=== PATIENT | female | born 1955 | race Caucasian/White ===

== ENCOUNTER 2017-11-09 11:05 | Inpatient (IN) | payer MEDICARE, MEDICAID ==
[~2017-11-09] VITALS: Ht 167.6 cm; Wt 58.9 kg
[~2017-11-09 11:05] MED LIST: CHOL100034 PO; DIVA125T2 PO; FLUO20CA30 PO; GABA-529 PO; LEVO25TA9 PO; LORA-192 PO; OMEP20CA4 PO; QUET200XR PO; SIMV-260 PO
[2017-11-09 11:26] VITALS: BP 126/71
[2017-11-09] MEDS ORDERED: HALOPERIDOL 5 MG TABLET PO PRN (11:45)
[2017-11-09 13:50] VITALS: BP 111/64
[2017-11-09 14:13] VITALS: BP 111/64
[2017-11-09 16:11] VITALS: BP 110/67
[2017-11-09] MEDS: LORazepam 1 MG TABLET PO PRN (16:26)
[2017-11-10 00:28] VITALS: BP 110/64
[2017-11-10 08:51] VITALS: BP 112/74
[2017-11-10 09:03] LABS: AMPHET/METH SCREEN,URINE NEGATIVE (NEGATIVE); BARBITURATE SCREEN, URINE NEGATIVE (NEGATIVE); BENZODIAZEPINES SCREEN,URINE NEGATIVE (NEGATIVE); CANNABINOID SCREEN,URINE NEGATIVE (NEGATIVE); COCAINE SCREEN,URINE NEGATIVE (NEGATIVE); METHADONE SCREEN, URINE NEGATIVE (NEGATIVE); OPIATE SCREEN,URINE POSITIVE (NEGATIVE); PHENCYCLIDINE SCREEN,URINE NEGATIVE (NEGATIVE)
[2017-11-10] MEDS: LORazepam 1 MG TABLET PO PRN ×2 (09:20→13:29)
[2017-11-10] MEDS ORDERED: PETROLATUM,WHITE 71 GM JELLY TP PRN (09:30)
[2017-11-10] MEDS ORDERED: CloNIDine HCL 0.1 MG TABLET PO PRN (09:30)
[2017-11-10] MEDS ORDERED: IBUPROFEN 600 MG TABLET PO PRN (09:30)
[2017-11-10] MEDS ORDERED: LOPERAMIDE HCL 2 MG CAPSULE PO PRN (09:30)
[2017-11-10] MEDS ORDERED: ACETAMINOPHEN 325 MG TABLET PO PRN (09:30)
[2017-11-10] MEDS ORDERED: MAG HYDROX/AL HYDROX/SIMETH ES 30 ML SUSPENSION UDCUP PO PRN (09:30)
[2017-11-10] MEDS ORDERED: BACITRACIN 28.4 GM OINTMENT TP PRN (09:30)
[2017-11-10] MEDS ORDERED: BENZOCAINE/MENTHOL LOZENGE MM PRN (09:30)
[2017-11-10] MEDS ORDERED: ONDANSETRON HCL 4 MG TABLET PO PRN (09:30)
[2017-11-10] MEDS ORDERED: ALBUTEROL SULFATE HFA 90 MCG/PUFF 8 GM INHALER IH PRN (09:30)
[2017-11-10 09:32] LABS: BILIRUBIN,URINE NEGATIVE (NEGATIVE); GLUCOSE, URINE (UA) NEGATIVE (NEGATIVE); KETONES,URINE NEGATIVE (NEGATIVE); LEUKOCYTE ESTERASE ,URINE NEGATIVE (NEGATIVE); NITRATE,URINE NEGATIVE (NEGATIVE); OCCULT BLOOD,URINE NEGATIVE (NEGATIVE); PROTEIN,URINE NEGATIVE (NEGATIVE); UROBILINOGEN,URINE 0.2 mg/dL (<=1.0)
[2017-11-10 09:48] LABS: APPEARANCE,URINE CLEAR (CLEAR)
[2017-11-10] MEDS: MAGNESIUM HYDROXIDE SUSPENSION 30 ML UDCUP PO PRN (10:23)
[2017-11-10] MEDS: GABAPENTIN 400 MG CAPSULE PO SCH ×3 (10:23→16:50)
[2017-11-10] MEDS: FLUoxetine HCL 10 MG CAPSULE PO SCH (15:48)
[2017-11-10 16:23] VITALS: BP 108/65
[2017-11-10] MEDS: CYCLOBENZAPRINE HCL 10 MG TABLET PO SCH (16:50)
[2017-11-10] MEDS: QUEtiapine FUMARATE 200 MG TABLET PO SCH (20:33)
[2017-11-10] MEDS: SIMVASTATIN 20 MG TABLET PO SCH (20:33)
[2017-11-10] MEDS: DIVALPROEX SODIUM 500 MG DR TABLET PO SCH (20:33)
[2017-11-11] MEDS: LEVOTHYROXINE SODIUM 25 MCG TABLET PO SCH (06:11)
[2017-11-11 06:57] VITALS: BP 113/68
[2017-11-11] MEDS: DIVALPROEX SODIUM 500 MG DR TABLET PO SCH ×2 (08:46→20:11)
[2017-11-11] MEDS: DOCUSATE SODIUM 100 MG CAPSULE PO SCH (08:46)
[2017-11-11 08:47] LABS: BASOPHILS % (AUTO) 0.4 % (0.0-2.0); EOSINOPHILS % (AUTO) 2.8 % (1.0-6.0); HEMATOCRIT 41.3 % (36-46); HEMOGLOBIN 13.9 g/dL (12.0-16.0); LYMPHOCYTES # (AUTO) 3.5 K/uL (1.0-4.8); LYMPHOCYTES % (AUTO) 50.3 % (22.0-44.0); MEAN CORPUSCULAR HEMOGLOBIN 30.2 pg (26.0-34.0); MEAN CORPUSCULAR HGB CONC 33.6 G/dL (31.0-37.0); MEAN CORPUSCULAR VOLUME 90 fL (80-100); MONOCYTES # (AUTO) 0.6 K/uL (0.1-1.0); MONOCYTES % (AUTO) 8.8 % (2.0-9.0); NEUTROPHILS # (AUTO) 2.6 K/uL (1.8-7.7); NEUTROPHILS % (AUTO) 37.7 % (40.0-70.0); PLATELET COUNT (AUTO) 319 K/uL (150-450); RED CELL DISTRIBUTION WIDTH 13.9 % (11.5-14.5)
[2017-11-11] MEDS: FLUoxetine HCL 10 MG CAPSULE PO SCH (08:47)
[2017-11-11] MEDS: CHOLECALCIFEROL (VIT D3) 1,000 UNITS TABLET PO SCH (08:47)
[2017-11-11] MEDS: CYCLOBENZAPRINE HCL 10 MG TABLET PO SCH ×2 (08:47→16:11)
[2017-11-11] MEDS: OMEPRAZOLE 20 MG CAPSULE PO SCH (08:47)
[2017-11-11] MEDS: GABAPENTIN 400 MG CAPSULE PO SCH ×3 (08:47→16:11)
[2017-11-11] MEDS ORDERED: [UNRECOGNIZED DRUG - OTHER] PO SCH (09:00)
[2017-11-11 09:04] VITALS: BP 110/60
[2017-11-11 09:09] LABS: HEMOGLOBIN A1C 5.9 % (4.5-6.2)
[2017-11-11 09:17] LABS: ALANINE AMINOTRANSFERASE 17 U/L (12-78); ALBUMIN 3.4 g/dL (3.4-5.0); ALKALINE PHOSPHATASE 72 U/L (46-116); ANION GAP 4 mmol/L (8-16); ASPARTATE AMINOTRANSFERASE 14 U/L (15-37); BILIRUBIN,TOTAL 0.2 mg/dL (0.1-1.0); CALCIUM, TOTAL 9.4 mg/dL (8.8-10.5); CARBON DIOXIDE 33 mmol/L (22-29); CHLORIDE 103 mmol/L (98-107); CHOL/HDL RATIO 2.6 (3.9-5.7); CHOLESTEROL 185 mg/dL (131-200); CREATININE 0.68 mg/dL (0.60-1.30); FREE T4 (FREE THYROXINE) 0.67 ng/dL (0.76-1.46); GLOMERULAR FILTR. RATE CALC > 60 mL/min (>60); GLUCOSE,RANDOM 86 mg/dL (70-110); HDL CHOLESTEROL 71 mg/dL (40-60); LDL CHOL (CALC.) 98 mg/dL (0-130); POTASSIUM 4.7 mmol/L (3.5-5.1); SODIUM SERUM 140 mmol/L (136-145); THYROID STIMULATING HORMONE 3.77 uIU/mL (0.36-3.74); TOTAL PROTEIN, SERUM 7.2 g/dL (6.4-8.2); TRIGLYCERIDES 81 mg/dL (15-150); UREA NITROGEN, BLOOD 19 mg/dL (7-18); VALPROIC ACID 49 mcg/mL (50-100)
[2017-11-11] MEDS: LORazepam 1 MG TABLET PO PRN ×3 (09:39→21:00)
[2017-11-11] MEDS: NICOTINE 21 MG/24 HOUR PATCH TD SCH (12:36)
[2017-11-11 16:18] VITALS: BP 112/71
[2017-11-11] MEDS: SIMVASTATIN 20 MG TABLET PO SCH (20:11)
[2017-11-11] MEDS: QUEtiapine FUMARATE 200 MG TABLET PO SCH (20:11)
[2017-11-12 06:14] VITALS: BP 107/62
[2017-11-12] MEDS: LEVOTHYROXINE SODIUM 25 MCG TABLET PO SCH (06:42)
[2017-11-12 08:46] VITALS: BP 111/69
[2017-11-12] MEDS: GABAPENTIN 400 MG CAPSULE PO SCH ×3 (09:01→16:05)
[2017-11-12] MEDS: CHOLECALCIFEROL (VIT D3) 1,000 UNITS TABLET PO SCH (09:02)
[2017-11-12] MEDS: DOCUSATE SODIUM 100 MG CAPSULE PO SCH (09:02)
[2017-11-12] MEDS: FLUoxetine HCL 10 MG CAPSULE PO SCH (09:02)
[2017-11-12] MEDS: OMEPRAZOLE 20 MG CAPSULE PO SCH (09:03)
[2017-11-12] MEDS: CYCLOBENZAPRINE HCL 10 MG TABLET PO SCH ×2 (09:03→16:05)
[2017-11-12] MEDS: DIVALPROEX SODIUM 500 MG DR TABLET PO SCH ×2 (09:03→20:12)
[2017-11-12] MEDS: NICOTINE 21 MG/24 HOUR PATCH TD SCH (09:04)
[2017-11-12] MEDS: LORazepam 1 MG TABLET PO PRN ×2 (09:55→16:05)
[2017-11-12 17:28] VITALS: BP 124/74
[2017-11-12] MEDS: QUEtiapine FUMARATE 200 MG TABLET PO SCH (20:12)
[2017-11-12] MEDS: SIMVASTATIN 20 MG TABLET PO SCH (20:12)
[2017-11-12] MEDS: MAGNESIUM SULFATE 454 GM BOX TP SCH (20:13)
[2017-11-13 00:14] VITALS: BP 120/86
[2017-11-13] MEDS: LEVOTHYROXINE SODIUM 25 MCG TABLET PO SCH (05:54)
[2017-11-13 08:31] VITALS: BP 110/62
[2017-11-13] MEDS: GABAPENTIN 400 MG CAPSULE PO SCH ×3 (09:26→16:10)
[2017-11-13] MEDS: OMEPRAZOLE 20 MG CAPSULE PO SCH (09:26)
[2017-11-13] MEDS: CHOLECALCIFEROL (VIT D3) 1,000 UNITS TABLET PO SCH (09:26)
[2017-11-13] MEDS: DOCUSATE SODIUM 100 MG CAPSULE PO SCH (09:26)
[2017-11-13] MEDS: DIVALPROEX SODIUM 500 MG DR TABLET PO SCH ×2 (09:26→20:36)
[2017-11-13] MEDS: FLUoxetine HCL 10 MG CAPSULE PO SCH (09:26)
[2017-11-13] MEDS: CYCLOBENZAPRINE HCL 10 MG TABLET PO SCH ×2 (09:26→16:10)
[2017-11-13] MEDS: NICOTINE 21 MG/24 HOUR PATCH TD SCH (09:27)
[2017-11-13] MEDS: LORazepam 1 MG TABLET PO PRN ×2 (09:50→16:10)
[2017-11-13 16:17] VITALS: BP 109/74
[2017-11-13] MEDS: QUEtiapine FUMARATE 200 MG TABLET PO SCH (20:36)
[2017-11-13] MEDS: SIMVASTATIN 20 MG TABLET PO SCH (20:36)
[2017-11-13] MEDS: MAGNESIUM SULFATE 454 GM BOX TP SCH (20:41)
[2017-11-14 00:05] VITALS: BP 100/61
[2017-11-14] MEDS: LORazepam 1 MG TABLET PO PRN ×3 (03:30→14:55)
[2017-11-14] MEDS: LEVOTHYROXINE SODIUM 25 MCG TABLET PO SCH (06:07)
[2017-11-14 08:49] VITALS: BP 106/70
[2017-11-14] MEDS ORDERED: NYSTATIN 30 GM CREAM TP SCH (09:00)
[2017-11-14] MEDS: GABAPENTIN 400 MG CAPSULE PO SCH ×3 (09:48→17:15)
[2017-11-14] MEDS: OMEPRAZOLE 20 MG CAPSULE PO SCH (09:48)
[2017-11-14] MEDS: CHOLECALCIFEROL (VIT D3) 1,000 UNITS TABLET PO SCH (09:48)
[2017-11-14] MEDS: NICOTINE 21 MG/24 HOUR PATCH TD SCH (09:48)
[2017-11-14] MEDS: DIVALPROEX SODIUM 500 MG DR TABLET PO SCH ×2 (09:49→21:19)
[2017-11-14] MEDS: DOCUSATE SODIUM 100 MG CAPSULE PO SCH (09:49)
[2017-11-14] MEDS: FLUoxetine HCL 10 MG CAPSULE PO SCH (09:49)
[2017-11-14] MEDS: NYSTATIN 30 GM CREAM TP SCH ×2 (09:52→17:16)
[2017-11-14] MEDS: CYCLOBENZAPRINE HCL 10 MG TABLET PO SCH ×2 (10:02→17:15)
[2017-11-14 16:34] VITALS: BP 106/63
[2017-11-14] MEDS: QUEtiapine FUMARATE 200 MG TABLET PO SCH (21:19)
[2017-11-14] MEDS: SIMVASTATIN 20 MG TABLET PO SCH (21:20)
[2017-11-14] MEDS: MAGNESIUM SULFATE 454 GM BOX TP SCH (21:20)
[2017-11-15 00:19] VITALS: BP 110/62
[2017-11-15] MEDS: LEVOTHYROXINE SODIUM 25 MCG TABLET PO SCH (06:15)
[2017-11-15] MEDS: LORazepam 1 MG TABLET PO PRN ×3 (06:34→15:40)
[2017-11-15] MEDS: DOCUSATE SODIUM 100 MG CAPSULE PO SCH (08:05)
[2017-11-15] MEDS: OMEPRAZOLE 20 MG CAPSULE PO SCH (08:05)
[2017-11-15] MEDS: CYCLOBENZAPRINE HCL 10 MG TABLET PO SCH ×2 (08:05→16:07)
[2017-11-15] MEDS: GABAPENTIN 400 MG CAPSULE PO SCH ×3 (08:05→16:07)
[2017-11-15] MEDS: FLUoxetine HCL 10 MG CAPSULE PO SCH (08:05)
[2017-11-15] MEDS: DIVALPROEX SODIUM 500 MG DR TABLET PO SCH ×2 (08:05→20:28)
[2017-11-15] MEDS: NICOTINE 21 MG/24 HOUR PATCH TD SCH (08:08)
[2017-11-15] MEDS: CHOLECALCIFEROL (VIT D3) 1,000 UNITS TABLET PO SCH (08:08)
[2017-11-15] MEDS: NYSTATIN 30 GM CREAM TP SCH ×2 (08:10→16:07)
[2017-11-15 08:50] VITALS: BP 113/70
[2017-11-15 16:19] VITALS: BP 110/71
[2017-11-15] MEDS: MAGNESIUM HYDROXIDE SUSPENSION 30 ML UDCUP PO PRN (17:45)
[2017-11-15] MEDS: QUEtiapine FUMARATE 200 MG TABLET PO SCH (20:28)
[2017-11-15] MEDS: MAGNESIUM SULFATE 454 GM BOX TP SCH (20:28)
[2017-11-15] MEDS: SIMVASTATIN 20 MG TABLET PO SCH (20:28)
[2017-11-15] MEDS: ZOLPIDEM TARTRATE 10 MG TABLET PO PRN (21:55)
[2017-11-16 01:13] VITALS: BP 102/65
[2017-11-16] MEDS: LEVOTHYROXINE SODIUM 25 MCG TABLET PO SCH (06:28)
[2017-11-16 08:00] VITALS: BP 108/72
[2017-11-16] MEDS: OMEPRAZOLE 20 MG CAPSULE PO SCH (08:08)
[2017-11-16] MEDS: DIVALPROEX SODIUM 500 MG DR TABLET PO SCH ×2 (08:08→20:08)
[2017-11-16] MEDS: DOCUSATE SODIUM 100 MG CAPSULE PO SCH (08:08)
[2017-11-16] MEDS: CYCLOBENZAPRINE HCL 10 MG TABLET PO SCH ×2 (08:09→16:44)
[2017-11-16] MEDS: CHOLECALCIFEROL (VIT D3) 1,000 UNITS TABLET PO SCH (08:09)
[2017-11-16] MEDS: GABAPENTIN 400 MG CAPSULE PO SCH ×3 (08:09→16:43)
[2017-11-16] MEDS: FLUoxetine HCL 10 MG CAPSULE PO SCH (08:09)
[2017-11-16] MEDS: NICOTINE 21 MG/24 HOUR PATCH TD SCH (08:09)
[2017-11-16] MEDS: NYSTATIN 30 GM CREAM TP SCH ×2 (08:09→16:44)
[2017-11-16] MEDS: LORazepam 1 MG TABLET PO PRN ×3 (08:23→17:18)
[2017-11-16 16:33] VITALS: BP 103/63
[2017-11-16 19:09] VITALS: BP 110/65
[2017-11-16] MEDS: QUEtiapine FUMARATE 200 MG TABLET PO SCH (20:08)
[2017-11-16] MEDS: SIMVASTATIN 20 MG TABLET PO SCH (20:08)
[2017-11-16] MEDS: MAGNESIUM SULFATE 454 GM BOX TP SCH (20:08)
[2017-11-17 02:42] VITALS: BP 101/62
[2017-11-17] MEDS: SUMAtriptan SUCCINATE 25 MG TABLET PO PRN ×2 (05:41→19:48)
[2017-11-17] MEDS: LEVOTHYROXINE SODIUM 25 MCG TABLET PO SCH (06:30)
[2017-11-17] MEDS: DOCUSATE SODIUM 100 MG CAPSULE PO SCH (08:05)
[2017-11-17] MEDS: OMEPRAZOLE 20 MG CAPSULE PO SCH (08:06)
[2017-11-17] MEDS: DIVALPROEX SODIUM 500 MG DR TABLET PO SCH ×2 (08:06→20:01)
[2017-11-17] MEDS: GABAPENTIN 400 MG CAPSULE PO SCH ×3 (08:06→16:24)
[2017-11-17] MEDS: CYCLOBENZAPRINE HCL 10 MG TABLET PO SCH ×2 (08:06→16:24)
[2017-11-17] MEDS: FLUoxetine HCL 10 MG CAPSULE PO SCH (08:06)
[2017-11-17] MEDS: CHOLECALCIFEROL (VIT D3) 1,000 UNITS TABLET PO SCH (08:06)
[2017-11-17] MEDS: LORazepam 1 MG TABLET PO PRN ×4 (08:07→20:04)
[2017-11-17] MEDS: MAGNESIUM HYDROXIDE SUSPENSION 30 ML UDCUP PO PRN ×2 (08:07→17:05)
[2017-11-17] MEDS: NYSTATIN 30 GM CREAM TP SCH ×2 (08:07→16:26)
[2017-11-17] MEDS: NICOTINE 21 MG/24 HOUR PATCH TD SCH (08:07)
[2017-11-17 08:22] VITALS: BP 109/66
[2017-11-17] MEDS ORDERED: QUET50TA PO (14:15)
[2017-11-17] MEDS ORDERED: DSSL PO (14:16)
[2017-11-17] MEDS ORDERED: CYCL10B PO (14:18)
[2017-11-17 16:10] VITALS: BP 107/65
[2017-11-17 19:50] VITALS: BP 112/68
[2017-11-17] MEDS: QUEtiapine FUMARATE 200 MG TABLET PO SCH (20:01)
[2017-11-17] MEDS: SIMVASTATIN 20 MG TABLET PO SCH (20:01)
[2017-11-17] MEDS ORDERED: MAGNESIUM CITRATE 300 ML ORAL SOLUTION PO ONE (20:15)
[2017-11-17] MEDS: MAGNESIUM SULFATE 454 GM BOX TP SCH (20:40)
[2017-11-17] MEDS: ZOLPIDEM TARTRATE 10 MG TABLET PO PRN (21:22)
[2017-11-18 01:30] VITALS: BP 102/61
[2017-11-18] MEDS ORDERED: DIVA500T35 PO (05:53)
[2017-11-18] MEDS ORDERED: PROZ10 PO (05:53)
[2017-11-18] MEDS ORDERED: QUET200T29 PO (05:53)
[2017-11-18] MEDS: LEVOTHYROXINE SODIUM 25 MCG TABLET PO SCH (06:29)
[2017-11-18] MEDS ORDERED: ALBU8HFA IH (07:58)
[2017-11-18] MEDS: OMEPRAZOLE 20 MG CAPSULE PO SCH (08:30)
[2017-11-18] MEDS: CHOLECALCIFEROL (VIT D3) 1,000 UNITS TABLET PO SCH (08:30)
[2017-11-18 08:31] VITALS: BP 108/69
[2017-11-18] MEDS: DIVALPROEX SODIUM 500 MG DR TABLET PO SCH (08:31)
[2017-11-18] MEDS: DOCUSATE SODIUM 100 MG CAPSULE PO SCH (08:31)
[2017-11-18] MEDS: CYCLOBENZAPRINE HCL 10 MG TABLET PO SCH (08:31)
[2017-11-18] MEDS: GABAPENTIN 400 MG CAPSULE PO SCH (08:31)
[2017-11-18] MEDS: FLUoxetine HCL 10 MG CAPSULE PO SCH (08:31)
[2017-11-18] MEDS: NYSTATIN 30 GM CREAM TP SCH (08:32)
[2017-11-18] MEDS: NICOTINE 21 MG/24 HOUR PATCH TD SCH (08:32)
== END 2017-11-18 09:40 | disposition home or self-care (01) | DRG 885 ==
LOC: B2X 13:30
DX: F31.5 Bipolar disorder, current episode depressed, severe, with psychotic features (principal); M41.9 Scoliosis, unspecified; R45.851 Suicidal ideations; B18.2 Chronic viral hepatitis C; E03.9 Hypothyroidism, unspecified; E78.5 Hyperlipidemia, unspecified; F17.200 Nicotine dependence, unspecified, uncomplicated; F90.9 Attention-deficit hyperactivity disorder, unspecified type; G43.909 Migraine, unspecified, not intractable, without status migrainosus; G89.4 Chronic pain syndrome; I10 Essential (primary) hypertension; J44.9 Chronic obstructive pulmonary disease, unspecified; K21.9 Gastro-esophageal reflux disease without esophagitis; M19.90 Unspecified osteoarthritis, unspecified site; M81.0 Age-related osteoporosis without current pathological fracture; F15.10 Other stimulant abuse, uncomplicated; F41.9 Anxiety disorder, unspecified; Z62.810 Personal history of physical and sexual abuse in childhood; Z71.6 Tobacco abuse counseling; Z87.11 Personal history of peptic ulcer disease; Z90.710 Acquired absence of both cervix and uterus; Z80.3 Family history of malignant neoplasm of breast; Z80.41 Family history of malignant neoplasm of ovary
CPT/HCPCS: 83036; 84439; 84443

== ENCOUNTER 2017-12-05 18:45 | Inpatient (IN) | payer MEDICARE, MEDICAID ==
[~2017-12-05] VITALS: Ht 167.6 cm; Wt 61.6 kg
[~2017-12-05 18:45] MED LIST changes: +ALBU8HFA IH; -DIVA125T2 PO; +DIVA500T35 PO; +DSSL PO; -FLUO20CA30 PO; -LORA-192 PO; +PROZ10 PO; +QUET200T29 PO; -QUET200XR PO
[2017-12-05 20:29] VITALS: BP 109/63
[2017-12-05] MEDS ORDERED: QUEtiapine FUMARATE 100 MG TABLET PO PRN (20:45)
[2017-12-05 21:32] VITALS: BP_SYST 109; BP_SYST 112; BP_DIAS 66
[2017-12-05] MEDS ORDERED: PNEUMOCOCCAL VACCINE POLYVALENT 0.5 ML VIAL [PPSV23] IM ONE (21:45)
[2017-12-05] MEDS ORDERED: ACETAMINOPHEN 325 MG TABLET PO PRN (21:45)
[2017-12-05] MEDS ORDERED: IBUPROFEN 400 MG TABLET PO PRN (21:45)
[2017-12-05] MEDS: QUEtiapine FUMARATE 200 MG TABLET PO SCH (21:52)
[2017-12-05] MEDS: DIVALPROEX SODIUM 500 MG DR TABLET PO SCH (21:52)
[2017-12-06 01:17] VITALS: BP 110/60
[2017-12-06 08:32] LABS: BASOPHILS % (AUTO) 0.7 % (0.0-2.0); EOSINOPHILS % (AUTO) 3.3 % (1.0-6.0); HEMATOCRIT 38.8 % (36-46); HEMOGLOBIN 13.1 g/dL (12.0-16.0); LYMPHOCYTES # (AUTO) 3.7 K/uL (1.0-4.8); LYMPHOCYTES % (AUTO) 48.3 % (22.0-44.0); MEAN CORPUSCULAR HEMOGLOBIN 30.6 pg (26.0-34.0); MEAN CORPUSCULAR HGB CONC 33.9 G/dL (31.0-37.0); MEAN CORPUSCULAR VOLUME 90 fL (80-100); MONOCYTES # (AUTO) 0.6 K/uL (0.1-1.0); MONOCYTES % (AUTO) 8.3 % (2.0-9.0); NEUTROPHILS % (AUTO) 39.4 % (40.0-70.0); PLATELET COUNT (AUTO) 303 K/uL (150-450); RED CELL DISTRIBUTION WIDTH 14.3 % (11.5-14.5)
[2017-12-06] MEDS: NICOTINE 21 MG/24 HOUR PATCH TD SCH (08:47)
[2017-12-06] MEDS: FLUoxetine HCL 10 MG CAPSULE PO SCH (08:47)
[2017-12-06] MEDS: GABAPENTIN 400 MG CAPSULE PO SCH ×3 (08:47→16:45)
[2017-12-06] MEDS: DIVALPROEX SODIUM 500 MG DR TABLET PO SCH ×2 (08:47→20:48)
[2017-12-06] MEDS: BACITRACIN 28.4 GM OINTMENT TP SCH ×2 (08:48→16:45)
[2017-12-06 08:54] VITALS: BP 109/69
[2017-12-06 10:18] LABS: POTASSIUM 3.4 mmol/L (3.5-5.1); SODIUM SERUM 141 mmol/L (136-145)
[2017-12-06 10:19] LABS: ALANINE AMINOTRANSFERASE 28 U/L (12-78); ALBUMIN 3.1 g/dL (3.4-5.0); ALKALINE PHOSPHATASE 74 U/L (46-116); ANION GAP 4 mmol/L (8-16); ASPARTATE AMINOTRANSFERASE 17 U/L (15-37); BILIRUBIN,TOTAL 0.2 mg/dL (0.1-1.0); CALCIUM, TOTAL 8.6 mg/dL (8.8-10.5); CARBON DIOXIDE 34 mmol/L (22-29); CHLORIDE 103 mmol/L (98-107); CREATININE 0.75 mg/dL (0.60-1.30); FREE T4 (FREE THYROXINE) 1.03 ng/dL (0.76-1.46); GLOMERULAR FILTR. RATE CALC > 60 mL/min (>60); GLUCOSE,RANDOM 98 mg/dL (70-110); TOTAL PROTEIN, SERUM 6.8 g/dL (6.4-8.2); VALPROIC ACID 66 mcg/mL (50-100)
[2017-12-06 10:41] LABS: UREA NITROGEN, BLOOD 17 mg/dL (7-18)
[2017-12-06] MEDS ORDERED: GABA-533 PO (13:06)
[2017-12-06] MEDS ORDERED: DSS100 PO (13:06)
[2017-12-06] MEDS ORDERED: POTASSIUM CHLORIDE 20 MEQ ER TABLET PO ONE (13:15)
[2017-12-06 16:20] VITALS: BP 114/74
[2017-12-06] MEDS: ALBUTEROL SULFATE HFA 90 MCG/PUFF 8 GM INHALER IH PRN (20:04)
[2017-12-06] MEDS: ACETAMINOPHEN 325 MG TABLET PO PRN (20:05)
[2017-12-06] MEDS: QUEtiapine FUMARATE 200 MG TABLET PO SCH (20:48)
[2017-12-06] MEDS ORDERED: DIVALPROEX SODIUM 500 MG DR TABLET PO SCH (21:00)
[2017-12-07 06:31] VITALS: BP 121/65
[2017-12-07] MEDS: LEVOTHYROXINE SODIUM 100 MCG TABLET PO SCH (06:42)
[2017-12-07 08:00] VITALS: BP 109/65
[2017-12-07] MEDS: DIVALPROEX SODIUM 500 MG DR TABLET PO SCH ×2 (08:19→20:44)
[2017-12-07] MEDS: CHOLECALCIFEROL (VIT D3) 1,000 UNITS TABLET PO SCH (08:19)
[2017-12-07] MEDS: SIMVASTATIN 20 MG TABLET PO SCH (08:19)
[2017-12-07] MEDS: DOCUSATE SODIUM 100 MG CAPSULE PO SCH (08:19)
[2017-12-07] MEDS: GABAPENTIN 400 MG CAPSULE PO SCH ×3 (08:19→16:35)
[2017-12-07] MEDS: OMEPRAZOLE 20 MG CAPSULE PO SCH (08:19)
[2017-12-07] MEDS: FLUoxetine HCL 10 MG CAPSULE PO SCH (08:19)
[2017-12-07] MEDS: BACITRACIN 28.4 GM OINTMENT TP SCH ×2 (08:20→16:35)
[2017-12-07] MEDS: NICOTINE 21 MG/24 HOUR PATCH TD SCH (08:20)
[2017-12-07 08:35] LABS: ANION GAP 7 mmol/L (8-16); CALCIUM, TOTAL 8.7 mg/dL (8.8-10.5); CARBON DIOXIDE 27 mmol/L (22-29); CHLORIDE 106 mmol/L (98-107); CREATININE 0.63 mg/dL (0.60-1.30); GLOMERULAR FILTR. RATE CALC > 60 mL/min (>60); GLUCOSE,RANDOM 78 mg/dL (70-110); POTASSIUM 4.8 mmol/L (3.5-5.1); SODIUM SERUM 140 mmol/L (136-145); UREA NITROGEN, BLOOD 21 mg/dL (7-18)
[2017-12-07] MEDS: ALBUTEROL SULFATE HFA 90 MCG/PUFF 8 GM INHALER IH PRN (12:55)
[2017-12-07 14:10] VITALS: BP 112/68
[2017-12-07] MEDS: ACETAMINOPHEN 325 MG TABLET PO PRN (14:10)
[2017-12-07 16:15] VITALS: BP 114/80
[2017-12-07] MEDS: QUEtiapine FUMARATE 200 MG TABLET PO SCH (20:44)
[2017-12-08] MEDS: LEVOTHYROXINE SODIUM 100 MCG TABLET PO SCH (06:16)
[2017-12-08 06:31] VITALS: BP 110/60
[2017-12-08] MEDS: CHOLECALCIFEROL (VIT D3) 1,000 UNITS TABLET PO SCH (08:36)
[2017-12-08] MEDS: DOCUSATE SODIUM 100 MG CAPSULE PO SCH (08:36)
[2017-12-08] MEDS: OMEPRAZOLE 20 MG CAPSULE PO SCH (08:36)
[2017-12-08] MEDS: SIMVASTATIN 20 MG TABLET PO SCH (08:36)
[2017-12-08] MEDS: FLUoxetine HCL 10 MG CAPSULE PO SCH (08:36)
[2017-12-08] MEDS: DIVALPROEX SODIUM 500 MG DR TABLET PO SCH ×2 (08:37→20:40)
[2017-12-08] MEDS: NICOTINE 21 MG/24 HOUR PATCH TD SCH (08:37)
[2017-12-08] MEDS: GABAPENTIN 400 MG CAPSULE PO SCH ×3 (08:37→16:48)
[2017-12-08] MEDS: BACITRACIN 28.4 GM OINTMENT TP SCH ×2 (08:39→16:48)
[2017-12-08] MEDS: HydrOXYzine PAMOATE 25 MG CAPSULE PO PRN (10:08)
[2017-12-08 10:09] VITALS: BP 123/74
[2017-12-08] MEDS: IBUPROFEN 400 MG TABLET PO PRN (10:09)
[2017-12-08 10:48] VITALS: BP 123/74
[2017-12-08 16:22] VITALS: BP 110/62
[2017-12-08] MEDS: QUEtiapine FUMARATE 200 MG TABLET PO SCH (20:40)
[2017-12-09] MEDS ORDERED: LEVOTHYROXINE SODIUM 25 MCG TABLET PO SCH (06:30)
[2017-12-09] MEDS: LEVOTHYROXINE SODIUM 100 MCG TABLET PO SCH (06:35)
[2017-12-09 07:11] VITALS: BP 115/73
[2017-12-09] MEDS ORDERED: GABAPENTIN 400 MG CAPSULE PO SCH (09:00)
[2017-12-09] MEDS: DIVALPROEX SODIUM 500 MG DR TABLET PO SCH ×2 (09:07→20:48)
[2017-12-09] MEDS: SIMVASTATIN 20 MG TABLET PO SCH (09:07)
[2017-12-09] MEDS: GABAPENTIN 400 MG CAPSULE PO SCH ×3 (09:07→16:15)
[2017-12-09] MEDS: CHOLECALCIFEROL (VIT D3) 1,000 UNITS TABLET PO SCH (09:07)
[2017-12-09] MEDS: OMEPRAZOLE 20 MG CAPSULE PO SCH (09:07)
[2017-12-09] MEDS: DOCUSATE SODIUM 100 MG CAPSULE PO SCH (09:07)
[2017-12-09] MEDS: FLUoxetine HCL 10 MG CAPSULE PO SCH (09:07)
[2017-12-09 09:10] VITALS: BP 109/62
[2017-12-09] MEDS: BACITRACIN 28.4 GM OINTMENT TP SCH ×2 (09:10→16:15)
[2017-12-09] MEDS: IBUPROFEN 400 MG TABLET PO PRN (09:10)
[2017-12-09] MEDS: NICOTINE 21 MG/24 HOUR PATCH TD SCH (09:10)
[2017-12-09 16:15] VITALS: BP 111/67
[2017-12-09] MEDS: TraMADol HCL 50 MG TABLET PO PRN (16:15)
[2017-12-09] MEDS ORDERED: MAGNESIUM CITRATE 300 ML ORAL SOLUTION PO ONE (17:45)
[2017-12-09] MEDS: QUEtiapine FUMARATE 200 MG TABLET PO SCH (20:48)
[2017-12-10] MEDS: LEVOTHYROXINE SODIUM 100 MCG TABLET PO SCH (06:40)
[2017-12-10 07:34] VITALS: BP 103/67
[2017-12-10 08:44] VITALS: BP 105/62
[2017-12-10] MEDS: CHOLECALCIFEROL (VIT D3) 1,000 UNITS TABLET PO SCH (09:29)
[2017-12-10] MEDS: FLUoxetine HCL 10 MG CAPSULE PO SCH (09:29)
[2017-12-10] MEDS: OMEPRAZOLE 20 MG CAPSULE PO SCH (09:29)
[2017-12-10] MEDS: GABAPENTIN 400 MG CAPSULE PO SCH ×3 (09:29→16:37)
[2017-12-10] MEDS: DOCUSATE SODIUM 100 MG CAPSULE PO SCH (09:29)
[2017-12-10] MEDS: DIVALPROEX SODIUM 500 MG DR TABLET PO SCH ×2 (09:29→20:32)
[2017-12-10] MEDS: SIMVASTATIN 20 MG TABLET PO SCH (09:29)
[2017-12-10] MEDS: NICOTINE 21 MG/24 HOUR PATCH TD SCH (09:29)
[2017-12-10] MEDS: BACITRACIN 28.4 GM OINTMENT TP SCH ×2 (09:31→16:51)
[2017-12-10 16:48] VITALS: BP 116/69
[2017-12-10] MEDS: TraMADol HCL 50 MG TABLET PO PRN (16:56)
[2017-12-10] MEDS: QUEtiapine FUMARATE 200 MG TABLET PO SCH (20:32)
[2017-12-10 21:01] VITALS: BP 124/68
[2017-12-10] MEDS: ZOLPIDEM TARTRATE 10 MG TABLET PO PRN (21:24)
[2017-12-11 06:16] VITALS: BP 101/67
[2017-12-11] MEDS: LEVOTHYROXINE SODIUM 100 MCG TABLET PO SCH (06:55)
[2017-12-11 08:31] VITALS: BP 100/60
[2017-12-11] MEDS: FLUoxetine HCL 10 MG CAPSULE PO SCH (09:17)
[2017-12-11] MEDS: DOCUSATE SODIUM 100 MG CAPSULE PO SCH (09:17)
[2017-12-11] MEDS: NICOTINE 21 MG/24 HOUR PATCH TD SCH (09:18)
[2017-12-11] MEDS: SIMVASTATIN 20 MG TABLET PO SCH (09:18)
[2017-12-11] MEDS: OMEPRAZOLE 20 MG CAPSULE PO SCH (09:18)
[2017-12-11] MEDS: CHOLECALCIFEROL (VIT D3) 1,000 UNITS TABLET PO SCH (09:18)
[2017-12-11] MEDS: GABAPENTIN 400 MG CAPSULE PO SCH ×3 (09:18→16:38)
[2017-12-11] MEDS: DIVALPROEX SODIUM 500 MG DR TABLET PO SCH ×2 (09:18→20:42)
[2017-12-11] MEDS: BACITRACIN 28.4 GM OINTMENT TP SCH ×2 (09:20→16:38)
[2017-12-11] MEDS: POLYETHYLENE GLYCOL 3350 17 GM PACKET PO SCH (09:20)
[2017-12-11 16:09] VITALS: BP 100/62
[2017-12-11 18:19] VITALS: BP 113/74
[2017-12-11] MEDS: TraMADol HCL 50 MG TABLET PO PRN (18:21)
[2017-12-11] MEDS: QUEtiapine FUMARATE 200 MG TABLET PO SCH (20:42)
[2017-12-12 06:22] VITALS: BP 101/61
[2017-12-12] MEDS: LEVOTHYROXINE SODIUM 100 MCG TABLET PO SCH (07:11)
[2017-12-12 08:36] VITALS: BP 105/60
[2017-12-12] MEDS: FLUoxetine HCL 10 MG CAPSULE PO SCH (08:54)
[2017-12-12] MEDS: GABAPENTIN 400 MG CAPSULE PO SCH ×3 (08:54→16:30)
[2017-12-12] MEDS: CHOLECALCIFEROL (VIT D3) 1,000 UNITS TABLET PO SCH (08:54)
[2017-12-12] MEDS: OMEPRAZOLE 20 MG CAPSULE PO SCH (08:54)
[2017-12-12] MEDS: DOCUSATE SODIUM 100 MG CAPSULE PO SCH (08:54)
[2017-12-12] MEDS: DIVALPROEX SODIUM 500 MG DR TABLET PO SCH ×2 (08:54→20:57)
[2017-12-12] MEDS: POLYETHYLENE GLYCOL 3350 17 GM PACKET PO SCH (08:55)
[2017-12-12] MEDS: SIMVASTATIN 20 MG TABLET PO SCH (08:55)
[2017-12-12] MEDS: NICOTINE 21 MG/24 HOUR PATCH TD SCH (08:55)
[2017-12-12] MEDS: BACITRACIN 28.4 GM OINTMENT TP SCH ×2 (08:58→16:30)
[2017-12-12 11:07] VITALS: BP 117/68
[2017-12-12] MEDS: TraMADol HCL 50 MG TABLET PO PRN (11:07)
[2017-12-12] MEDS: HydrOXYzine PAMOATE 25 MG CAPSULE PO PRN (12:32)
[2017-12-12] MEDS: MAGNESIUM CITRATE 300 ML ORAL SOLUTION PO PRN (14:00)
[2017-12-12 16:08] VITALS: BP 111/68
[2017-12-12] MEDS: QUEtiapine FUMARATE 200 MG TABLET PO SCH (20:57)
[2017-12-12] MEDS: ZOLPIDEM TARTRATE 10 MG TABLET PO PRN (21:55)
[2017-12-13] MEDS: LEVOTHYROXINE SODIUM 100 MCG TABLET PO SCH (06:09)
[2017-12-13 06:48] VITALS: BP 112/70
[2017-12-13 08:35] VITALS: BP 100/63
[2017-12-13] MEDS: GABAPENTIN 400 MG CAPSULE PO SCH ×3 (10:14→17:04)
[2017-12-13] MEDS: SIMVASTATIN 20 MG TABLET PO SCH (10:14)
[2017-12-13] MEDS: CHOLECALCIFEROL (VIT D3) 1,000 UNITS TABLET PO SCH (10:14)
[2017-12-13] MEDS: FLUoxetine HCL 10 MG CAPSULE PO SCH (10:15)
[2017-12-13] MEDS: BACITRACIN 28.4 GM OINTMENT TP SCH ×2 (10:15→17:04)
[2017-12-13] MEDS: DIVALPROEX SODIUM 500 MG DR TABLET PO SCH ×2 (10:15→20:53)
[2017-12-13] MEDS: DOCUSATE SODIUM 100 MG CAPSULE PO SCH (10:15)
[2017-12-13] MEDS: POLYETHYLENE GLYCOL 3350 17 GM PACKET PO SCH (10:15)
[2017-12-13] MEDS: OMEPRAZOLE 20 MG CAPSULE PO SCH (10:15)
[2017-12-13] MEDS: NICOTINE 21 MG/24 HOUR PATCH TD SCH (10:16)
[2017-12-13 13:02] VITALS: BP 120/72
[2017-12-13] MEDS: TraMADol HCL 50 MG TABLET PO PRN (13:03)
[2017-12-13 16:09] VITALS: BP 118/72
[2017-12-13] MEDS: HydrOXYzine PAMOATE 25 MG CAPSULE PO PRN (17:50)
[2017-12-13] MEDS: QUEtiapine FUMARATE 300 MG TABLET PO SCH (20:53)
[2017-12-14] MEDS: LEVOTHYROXINE SODIUM 100 MCG TABLET PO SCH (06:25)
[2017-12-14 06:50] VITALS: BP 110/72
[2017-12-14] MEDS: GABAPENTIN 400 MG CAPSULE PO SCH ×3 (08:14→16:33)
[2017-12-14] MEDS: QUEtiapine FUMARATE 100 MG TABLET PO SCH (08:14)
[2017-12-14] MEDS: DOCUSATE SODIUM 100 MG CAPSULE PO SCH (08:14)
[2017-12-14] MEDS: DIVALPROEX SODIUM 500 MG DR TABLET PO SCH ×2 (08:14→20:16)
[2017-12-14] MEDS: SIMVASTATIN 20 MG TABLET PO SCH (08:14)
[2017-12-14] MEDS: CHOLECALCIFEROL (VIT D3) 1,000 UNITS TABLET PO SCH (08:14)
[2017-12-14] MEDS: OMEPRAZOLE 20 MG CAPSULE PO SCH (08:14)
[2017-12-14] MEDS: NICOTINE 21 MG/24 HOUR PATCH TD SCH (08:15)
[2017-12-14] MEDS: POLYETHYLENE GLYCOL 3350 17 GM PACKET PO SCH (08:15)
[2017-12-14] MEDS: FLUoxetine HCL 20 MG CAPSULE PO SCH (08:15)
[2017-12-14] MEDS: BACITRACIN 28.4 GM OINTMENT TP SCH ×2 (08:15→16:33)
[2017-12-14 08:28] VITALS: BP 102/69
[2017-12-14 12:58] VITALS: BP 117/73
[2017-12-14] MEDS: TraMADol HCL 50 MG TABLET PO PRN ×2 (12:58→20:16)
[2017-12-14] MEDS: HydrOXYzine PAMOATE 25 MG CAPSULE PO PRN (14:38)
[2017-12-14 16:03] VITALS: BP 102/70
[2017-12-14 20:16] VITALS: BP 128/70
[2017-12-14] MEDS: QUEtiapine FUMARATE 300 MG TABLET PO SCH (20:16)
[2017-12-15 01:15] VITALS: BP 103/62
[2017-12-15] MEDS: LEVOTHYROXINE SODIUM 100 MCG TABLET PO SCH (06:26)
[2017-12-15] MEDS: DIVALPROEX SODIUM 500 MG DR TABLET PO SCH ×2 (08:08→20:51)
[2017-12-15] MEDS: SIMVASTATIN 20 MG TABLET PO SCH (08:08)
[2017-12-15] MEDS: CHOLECALCIFEROL (VIT D3) 1,000 UNITS TABLET PO SCH (08:08)
[2017-12-15] MEDS: POLYETHYLENE GLYCOL 3350 17 GM PACKET PO SCH (08:09)
[2017-12-15] MEDS: NICOTINE 21 MG/24 HOUR PATCH TD SCH (08:09)
[2017-12-15] MEDS: BACITRACIN 28.4 GM OINTMENT TP SCH ×2 (08:09→17:17)
[2017-12-15] MEDS: OMEPRAZOLE 20 MG CAPSULE PO SCH (08:09)
[2017-12-15] MEDS: FLUoxetine HCL 20 MG CAPSULE PO SCH (08:09)
[2017-12-15] MEDS: DOCUSATE SODIUM 100 MG CAPSULE PO SCH (08:09)
[2017-12-15] MEDS: QUEtiapine FUMARATE 100 MG TABLET PO SCH (08:09)
[2017-12-15] MEDS: GABAPENTIN 400 MG CAPSULE PO SCH ×3 (08:09→16:38)
[2017-12-15 08:30] VITALS: BP 98/58
[2017-12-15] MEDS: MAGNESIUM CITRATE 300 ML ORAL SOLUTION PO PRN (13:09)
[2017-12-15 16:45] VITALS: BP 110/69
[2017-12-15] MEDS: HydrOXYzine PAMOATE 25 MG CAPSULE PO PRN (16:48)
[2017-12-15] MEDS: QUEtiapine FUMARATE 300 MG TABLET PO SCH (20:51)
[2017-12-16 02:32] VITALS: BP 102/61
[2017-12-16] MEDS: LEVOTHYROXINE SODIUM 100 MCG TABLET PO SCH (06:08)
[2017-12-16 08:42] VITALS: BP 102/70
[2017-12-16] MEDS: DIVALPROEX SODIUM 500 MG DR TABLET PO SCH ×2 (08:46→20:37)
[2017-12-16] MEDS: QUEtiapine FUMARATE 100 MG TABLET PO SCH (08:46)
[2017-12-16] MEDS: FLUoxetine HCL 20 MG CAPSULE PO SCH (08:46)
[2017-12-16] MEDS: DOCUSATE SODIUM 100 MG CAPSULE PO SCH (08:46)
[2017-12-16] MEDS: OMEPRAZOLE 20 MG CAPSULE PO SCH (08:46)
[2017-12-16] MEDS: CHOLECALCIFEROL (VIT D3) 1,000 UNITS TABLET PO SCH (08:47)
[2017-12-16] MEDS: GABAPENTIN 400 MG CAPSULE PO SCH ×3 (08:47→16:39)
[2017-12-16] MEDS: SIMVASTATIN 20 MG TABLET PO SCH (08:47)
[2017-12-16] MEDS: POLYETHYLENE GLYCOL 3350 17 GM PACKET PO SCH (08:47)
[2017-12-16] MEDS: NICOTINE 21 MG/24 HOUR PATCH TD SCH (08:48)
[2017-12-16] MEDS: BACITRACIN 28.4 GM OINTMENT TP SCH ×2 (08:48→18:48)
[2017-12-16 16:10] VITALS: BP 113/76
[2017-12-16] MEDS: TraMADol HCL 50 MG TABLET PO PRN (16:12)
[2017-12-16] MEDS: QUEtiapine FUMARATE 300 MG TABLET PO SCH (20:37)
[2017-12-16] MEDS: ZOLPIDEM TARTRATE 10 MG TABLET PO PRN (21:40)
[2017-12-17 00:10] VITALS: BP 100/61
[2017-12-17] MEDS: LEVOTHYROXINE SODIUM 100 MCG TABLET PO SCH (06:42)
[2017-12-17 08:17] VITALS: BP 100/60
[2017-12-17] MEDS: DOCUSATE SODIUM 100 MG CAPSULE PO SCH (08:36)
[2017-12-17] MEDS: SIMVASTATIN 20 MG TABLET PO SCH (08:36)
[2017-12-17] MEDS: QUEtiapine FUMARATE 100 MG TABLET PO SCH (08:37)
[2017-12-17] MEDS: OMEPRAZOLE 20 MG CAPSULE PO SCH (08:37)
[2017-12-17] MEDS: POLYETHYLENE GLYCOL 3350 17 GM PACKET PO SCH (08:37)
[2017-12-17] MEDS: CHOLECALCIFEROL (VIT D3) 1,000 UNITS TABLET PO SCH (08:37)
[2017-12-17] MEDS: DIVALPROEX SODIUM 500 MG DR TABLET PO SCH ×2 (08:37→20:03)
[2017-12-17] MEDS: GABAPENTIN 400 MG CAPSULE PO SCH ×3 (08:37→16:11)
[2017-12-17] MEDS: FLUoxetine HCL 20 MG CAPSULE PO SCH (08:37)
[2017-12-17] MEDS: BACITRACIN 28.4 GM OINTMENT TP SCH (08:38)
[2017-12-17] MEDS: NICOTINE 21 MG/24 HOUR PATCH TD SCH (08:38)
[2017-12-17 16:05] VITALS: BP 110/60
[2017-12-17] MEDS: TraMADol HCL 50 MG TABLET PO PRN (16:05)
[2017-12-17] MEDS: QUEtiapine FUMARATE 300 MG TABLET PO SCH (20:03)
[2017-12-18 02:05] VITALS: BP 100/60
[2017-12-18] MEDS: TraMADol HCL 50 MG TABLET PO PRN ×2 (06:17→19:20)
[2017-12-18] MEDS: LEVOTHYROXINE SODIUM 100 MCG TABLET PO SCH (06:48)
[2017-12-18 08:10] VITALS: BP 116/62
[2017-12-18 08:10] LABS: ANION GAP 5 mmol/L (8-16); CALCIUM, TOTAL 8.5 mg/dL (8.8-10.5); CARBON DIOXIDE 31 mmol/L (22-29); CHLORIDE 103 mmol/L (98-107); CREATININE 0.58 mg/dL (0.60-1.30); GLOMERULAR FILTR. RATE CALC > 60 mL/min (>60); GLUCOSE,RANDOM 74 mg/dL (70-110); POTASSIUM 4.6 mmol/L (3.5-5.1); SODIUM SERUM 139 mmol/L (136-145); THYROID STIMULATING HORMONE 0.12 uIU/mL (0.36-3.74); UREA NITROGEN, BLOOD 14 mg/dL (7-18); VALPROIC ACID 50 mcg/mL (50-100)
[2017-12-18] MEDS: OMEPRAZOLE 20 MG CAPSULE PO SCH (08:15)
[2017-12-18] MEDS: DIVALPROEX SODIUM 500 MG DR TABLET PO SCH ×2 (08:15→20:38)
[2017-12-18] MEDS: GABAPENTIN 400 MG CAPSULE PO SCH ×3 (08:15→16:34)
[2017-12-18] MEDS: QUEtiapine FUMARATE 100 MG TABLET PO SCH (08:15)
[2017-12-18] MEDS: CHOLECALCIFEROL (VIT D3) 1,000 UNITS TABLET PO SCH (08:15)
[2017-12-18] MEDS: SIMVASTATIN 20 MG TABLET PO SCH (08:15)
[2017-12-18] MEDS: DOCUSATE SODIUM 100 MG CAPSULE PO SCH (08:15)
[2017-12-18] MEDS: FLUoxetine HCL 20 MG CAPSULE PO SCH (08:15)
[2017-12-18] MEDS: NICOTINE 21 MG/24 HOUR PATCH TD SCH (08:16)
[2017-12-18] MEDS: POLYETHYLENE GLYCOL 3350 17 GM PACKET PO SCH (08:16)
[2017-12-18] MEDS: HydrOXYzine PAMOATE 25 MG CAPSULE PO PRN (14:51)
[2017-12-18 16:15] VITALS: BP 148/71
[2017-12-18 19:21] VITALS: BP 112/68
[2017-12-18] MEDS: QUEtiapine FUMARATE 300 MG TABLET PO SCH (20:38)
[2017-12-19 00:50] VITALS: BP 113/62
[2017-12-19] MEDS: LEVOTHYROXINE SODIUM 100 MCG TABLET PO SCH (06:41)
[2017-12-19 08:27] VITALS: BP 102/60
[2017-12-19] MEDS: OMEPRAZOLE 20 MG CAPSULE PO SCH (08:39)
[2017-12-19] MEDS: QUEtiapine FUMARATE 100 MG TABLET PO SCH (08:39)
[2017-12-19] MEDS: DIVALPROEX SODIUM 500 MG DR TABLET PO SCH ×2 (08:39→20:40)
[2017-12-19] MEDS: FLUoxetine HCL 20 MG CAPSULE PO SCH (08:39)
[2017-12-19] MEDS: GABAPENTIN 400 MG CAPSULE PO SCH ×3 (08:39→16:43)
[2017-12-19] MEDS: SIMVASTATIN 20 MG TABLET PO SCH (08:39)
[2017-12-19] MEDS: CHOLECALCIFEROL (VIT D3) 1,000 UNITS TABLET PO SCH (08:39)
[2017-12-19] MEDS: DOCUSATE SODIUM 100 MG CAPSULE PO SCH (08:39)
[2017-12-19] MEDS: POLYETHYLENE GLYCOL 3350 17 GM PACKET PO SCH (08:40)
[2017-12-19] MEDS: NICOTINE 21 MG/24 HOUR PATCH TD SCH (08:40)
[2017-12-19 09:09] VITALS: BP 111/64
[2017-12-19] MEDS: TraMADol HCL 50 MG TABLET PO PRN ×2 (09:09→17:11)
[2017-12-19] MEDS: HydrOXYzine PAMOATE 25 MG CAPSULE PO PRN ×2 (14:06→19:12)
[2017-12-19 17:10] VITALS: BP 115/67
[2017-12-19] MEDS: QUEtiapine FUMARATE 300 MG TABLET PO SCH (20:40)
[2017-12-20 02:19] VITALS: BP 105/63
[2017-12-20] MEDS: LEVOTHYROXINE SODIUM 100 MCG TABLET PO SCH (06:19)
[2017-12-20 08:24] VITALS: BP 120/69
[2017-12-20] MEDS: GABAPENTIN 400 MG CAPSULE PO SCH ×3 (08:54→16:43)
[2017-12-20] MEDS: OMEPRAZOLE 20 MG CAPSULE PO SCH (08:54)
[2017-12-20] MEDS: QUEtiapine FUMARATE 100 MG TABLET PO SCH (08:54)
[2017-12-20] MEDS: FLUoxetine HCL 20 MG CAPSULE PO SCH (08:54)
[2017-12-20] MEDS: DOCUSATE SODIUM 100 MG CAPSULE PO SCH (08:54)
[2017-12-20] MEDS: SIMVASTATIN 20 MG TABLET PO SCH (08:54)
[2017-12-20] MEDS: DIVALPROEX SODIUM 500 MG DR TABLET PO SCH ×2 (08:54→20:40)
[2017-12-20] MEDS: CHOLECALCIFEROL (VIT D3) 1,000 UNITS TABLET PO SCH (08:54)
[2017-12-20] MEDS: NICOTINE 21 MG/24 HOUR PATCH TD SCH (08:55)
[2017-12-20] MEDS: POLYETHYLENE GLYCOL 3350 17 GM PACKET PO SCH (08:55)
[2017-12-20 09:30] LABS: FREE T4 (FREE THYROXINE) 0.68 ng/dL (0.76-1.46); THYROID STIMULATING HORMONE 0.12 uIU/mL (0.36-3.74)
[2017-12-20 09:45] VITALS: BP 116/66
[2017-12-20] MEDS: TraMADol HCL 50 MG TABLET PO PRN ×2 (09:45→19:35)
[2017-12-20] MEDS: HydrOXYzine PAMOATE 25 MG CAPSULE PO PRN (12:45)
[2017-12-20 16:20] VITALS: BP 102/62
[2017-12-20 19:35] VITALS: BP 120/68
[2017-12-20] MEDS: QUEtiapine FUMARATE 300 MG TABLET PO SCH (20:35)
[2017-12-21 00:23] VITALS: BP 103/66
[2017-12-21] MEDS ORDERED: LEVOTHYROXINE SODIUM 50 MCG TABLET PO SCH (06:30)
[2017-12-21] MEDS: DIVALPROEX SODIUM 500 MG DR TABLET PO SCH (08:13)
[2017-12-21] MEDS: OMEPRAZOLE 20 MG CAPSULE PO SCH (08:13)
[2017-12-21] MEDS: SIMVASTATIN 20 MG TABLET PO SCH (08:13)
[2017-12-21] MEDS: QUEtiapine FUMARATE 100 MG TABLET PO SCH (08:13)
[2017-12-21] MEDS: FLUoxetine HCL 20 MG CAPSULE PO SCH (08:13)
[2017-12-21] MEDS: CHOLECALCIFEROL (VIT D3) 1,000 UNITS TABLET PO SCH (08:13)
[2017-12-21] MEDS: POLYETHYLENE GLYCOL 3350 17 GM PACKET PO SCH (08:13)
[2017-12-21] MEDS: GABAPENTIN 400 MG CAPSULE PO SCH (08:13)
[2017-12-21] MEDS: DOCUSATE SODIUM 100 MG CAPSULE PO SCH (08:13)
[2017-12-21] MEDS: NICOTINE 21 MG/24 HOUR PATCH TD SCH (08:14)
[2017-12-21 08:40] VITALS: BP 103/63
[2017-12-21] MEDS ORDERED: QUET100T33 PO (09:31)
[2017-12-21] MEDS ORDERED: DIVA500T35 PO (09:31)
[2017-12-21] MEDS ORDERED: QUET300T18 PO (09:31)
[2017-12-21] MEDS ORDERED: GABA-533 PO (09:31)
[2017-12-21] MEDS ORDERED: FLUO-191 PO (09:31)
[2017-12-21] MEDS ORDERED: MIRALAX PO (09:57)
[2017-12-22] MEDS ORDERED: LEVOTHYROXINE SODIUM 25 MCG TABLET PO SCH (06:30)
== END 2017-12-21 11:00 | disposition home or self-care (01) | DRG 885 ==
LOC: B2X 20:58
DX: F25.0 Schizoaffective disorder, bipolar type (principal); R45.851 Suicidal ideations; Z91.14 Patient's other noncompliance with medication regimen; B18.2 Chronic viral hepatitis C; E03.9 Hypothyroidism, unspecified; E55.9 Vitamin D deficiency, unspecified; E78.5 Hyperlipidemia, unspecified; E87.6 Hypokalemia; F10.10 Alcohol abuse, uncomplicated; M19.90 Unspecified osteoarthritis, unspecified site; F41.9 Anxiety disorder, unspecified; K59.09 Other constipation; G43.909 Migraine, unspecified, not intractable, without status migrainosus; G89.4 Chronic pain syndrome; J44.9 Chronic obstructive pulmonary disease, unspecified; K21.9 Gastro-esophageal reflux disease without esophagitis; F15.10 Other stimulant abuse, uncomplicated; F17.200 Nicotine dependence, unspecified, uncomplicated; Z90.710 Acquired absence of both cervix and uterus; Z79.899 Other long term (current) drug therapy; Z87.11 Personal history of peptic ulcer disease; Z80.3 Family history of malignant neoplasm of breast; Z80.41 Family history of malignant neoplasm of ovary; Z28.21 Immunization not carried out because of patient refusal; Z71.6 Tobacco abuse counseling
CPT/HCPCS: 82306; 84439; 84443; 86592; 86609; 87081; 87536; J3535

== ENCOUNTER 2017-12-27 12:03 | Inpatient (IN) | payer MEDICARE, MEDICAID ==
[~2017-12-27] VITALS: Ht 167.6 cm; Wt 62.1 kg
[~2017-12-27 12:03] MED LIST changes: -ALBU8HFA IH; +DSS100 PO; -DSSL PO; +FLUO-191 PO; -GABA-529 PO; +GABA-533 PO; +MIRALAX PO; -PROZ10 PO; +QUET100T33 PO; -QUET200T29 PO; +QUET300T18 PO
[2017-12-27] MEDS ORDERED: 0.9% SODIUM CHLORIDE 10 ML SYRINGE IVP PRN ×3 (14:00→22:00)
[2017-12-27 14:21] LABS: BASOPHILS % (AUTO) 0.2 % (0.0-2.0); EOSINOPHILS % (AUTO) 0 % (1.0-6.0); HEMATOCRIT 38.9 % (36-46); HEMOGLOBIN 13.1 g/dL (12.0-16.0); LYMPHOCYTES # (AUTO) 1.1 K/uL (1.0-4.8); MEAN CORPUSCULAR HEMOGLOBIN 30.2 pg (26.0-34.0); MEAN CORPUSCULAR HGB CONC 33.8 G/dL (31.0-37.0); MEAN CORPUSCULAR VOLUME 89 fL (80-100); MONOCYTES # (AUTO) 0.9 K/uL (0.1-1.0); NEUTROPHILS # (AUTO) 16.7 K/uL (1.8-7.7); PLATELET COUNT (AUTO) 273 K/uL (150-450); RED BLOOD CELL COUNT(AUTO) 4.35 MIL/uL (4.00-5.20); RED CELL DISTRIBUTION WIDTH 14.2 % (11.5-14.5)
[2017-12-27 14:22] LABS: NEUTROPHILS % (AUTO) 88.8 % (40.0-70.0)
[2017-12-27 14:31] LABS: ANION GAP 12 mmol/L (8-16); CALCIUM, TOTAL 8.4 mg/dL (8.8-10.5); CARBON DIOXIDE 26 mmol/L (22-29); CHLORIDE 96 mmol/L (98-107); CREATININE 0.74 mg/dL (0.60-1.30); GLOMERULAR FILTR. RATE CALC > 60 mL/min (>60); GLUCOSE,RANDOM 92 mg/dL (70-110); POTASSIUM 3.5 mmol/L (3.5-5.1); SODIUM SERUM 134 mmol/L (136-145); UREA NITROGEN, BLOOD 13 mg/dL (7-18)
[2017-12-27 14:32] LABS: PROTHROMBIN TIME 10.2 SEC (9.4-11.6)
[2017-12-27 14:37] LABS: ALANINE AMINOTRANSFERASE 26 U/L (12-78); ALBUMIN 3.8 g/dL (3.4-5.0); ALKALINE PHOSPHATASE 77 U/L (46-116); ASPARTATE AMINOTRANSFERASE 29 U/L (15-37); TOTAL PROTEIN, SERUM 8.1 g/dL (6.4-8.2)
[2017-12-27 14:39] LABS: LACTIC ACID 0.9 mmol/L (0.4-2.0)
[2017-12-27 19:13] LABS: AMPHET/METH SCREEN,URINE POSITIVE (NEGATIVE); BARBITURATE SCREEN, URINE NEGATIVE (NEGATIVE); BENZODIAZEPINES SCREEN,URINE NEGATIVE (NEGATIVE); CANNABINOID SCREEN,URINE NEGATIVE (NEGATIVE); COCAINE SCREEN,URINE NEGATIVE (NEGATIVE); METHADONE SCREEN, URINE NEGATIVE (NEGATIVE); OPIATE SCREEN,URINE NEGATIVE (NEGATIVE); PHENCYCLIDINE SCREEN,URINE NEGATIVE (NEGATIVE)
[2017-12-27 19:22] LABS: APPEARANCE,URINE CLOUDY (CLEAR); GLUCOSE, URINE (UA) NEGATIVE (NEGATIVE); KETONES,URINE 15 mg/dL (NEGATIVE); LEUKOCYTE ESTERASE ,URINE SMALL (NEGATIVE); NITRATE,URINE NEGATIVE (NEGATIVE); OCCULT BLOOD,URINE TRACE (NEGATIVE); PROTEIN,URINE TRACE (NEGATIVE)
[2017-12-27 19:35] LABS: BILIRUBIN,URINE PRELIM. POSITIVE (NEGATIVE)
[2017-12-27 19:38] LABS: RBC,URINE 0-2 /HPF (0-2)
[2017-12-27 19:39] LABS: BACTERIA,URINE Few /HPF (None Seen); SQUAMOUS EPITHELIAL CELL,UR Few /LPF (None Seen)
[2017-12-27] MEDS ORDERED: ACETAMINOPHEN 325 MG TABLET PO PRN (20:00)
[2017-12-27] MEDS ORDERED: ONDANSETRON HCL 4 MG/2 ML VIAL IVP PRN ×2 (20:00→22:00)
[2017-12-27 20:36] VITALS: BP 110/65
[2017-12-27] MEDS ORDERED: IPRATROPIUM BROMIDE 0.5 MG/2.5 ML NEB SOLUTION NEB PRN (22:00)
[2017-12-27] MEDS ORDERED: ZOLPIDEM TARTRATE 5 MG TABLET PO PRN (22:00)
[2017-12-27] MEDS ORDERED: ALBUTEROL SULFATE 2.5 MG/0.5 ML NEB SOLUTION NEB PRN (22:00)
[2017-12-27] MEDS: QUEtiapine FUMARATE 300 MG TABLET PO SCH (23:00)
[2017-12-27] MEDS: DIVALPROEX SODIUM 500 MG DR TABLET PO SCH (23:00)
[2017-12-27 23:16] VITALS: BP 96/45
[2017-12-28] MEDS: HEPARIN SODIUM,PORCINE 5,000 UNITS/ML VIAL SQ SCH ×3 (01:07→15:47)
[2017-12-28] MEDS: IPRATROPIUM BROMIDE 0.5 MG/2.5 ML NEB SOLUTION NEB SCH ×4 (02:00→20:00)
[2017-12-28] MEDS: ALBUTEROL SULFATE 2.5 MG/0.5 ML NEB SOLUTION NEB SCH ×4 (02:00→20:00)
[2017-12-28 04:20] VITALS: BP 107/52
[2017-12-28] MEDS: LEVOTHYROXINE SODIUM 25 MCG TABLET PO SCH (06:22)
[2017-12-28] MEDS: ACETAMINOPHEN 325 MG TABLET PO PRN ×3 (07:02→15:47)
[2017-12-28 07:45] VITALS: BP 95/54
[2017-12-28] MEDS: PANTOPRAZOLE SODIUM 40 MG/VIAL IVP SCH (08:20)
[2017-12-28] MEDS: GABAPENTIN 400 MG CAPSULE PO SCH ×3 (08:21→21:32)
[2017-12-28] MEDS: SIMVASTATIN 20 MG TABLET PO SCH (08:21)
[2017-12-28] MEDS: DIVALPROEX SODIUM 500 MG DR TABLET PO SCH ×2 (08:21→21:32)
[2017-12-28] MEDS: FLUoxetine HCL 20 MG CAPSULE PO SCH (08:21)
[2017-12-28] MEDS: CHOLECALCIFEROL (VIT D3) 1,000 UNITS TABLET PO SCH (08:21)
[2017-12-28] MEDS: DOCUSATE SODIUM 100 MG CAPSULE PO SCH (08:22)
[2017-12-28] MEDS: POLYETHYLENE GLYCOL 3350 17 GM PACKET PO SCH (08:22)
[2017-12-28] MEDS: QUEtiapine FUMARATE 100 MG TABLET PO SCH (08:25)
[2017-12-28] MEDS ORDERED: OMEPRAZOLE 20 MG CAPSULE PO SCH (09:00)
[2017-12-28 11:13] VITALS: BP 97/55
[2017-12-28 15:13] LABS: ANION GAP 9 mmol/L (8-16); CALCIUM, TOTAL 7.9 mg/dL (8.8-10.5); CARBON DIOXIDE 27 mmol/L (22-29); CHLORIDE 99 mmol/L (98-107); CREATININE 0.85 mg/dL (0.60-1.30); GLOMERULAR FILTR. RATE CALC > 60 mL/min (>60); GLUCOSE,RANDOM 90 mg/dL (70-110); SODIUM SERUM 135 mmol/L (136-145); UREA NITROGEN, BLOOD 14 mg/dL (7-18)
[2017-12-28 15:14] LABS: BASOPHILS % (AUTO) 0.3 % (0.0-2.0); EOSINOPHILS % (AUTO) 0.7 % (1.0-6.0); HEMATOCRIT 33.3 % (36-46); HEMOGLOBIN 11.7 g/dL (12.0-16.0); LYMPHOCYTES # (AUTO) 2.3 K/uL (1.0-4.8); LYMPHOCYTES % (AUTO) 20.9 % (22.0-44.0); MEAN CORPUSCULAR HEMOGLOBIN 31.5 pg (26.0-34.0); MEAN CORPUSCULAR VOLUME 90 fL (80-100); MONOCYTES # (AUTO) 0.9 K/uL (0.1-1.0); MONOCYTES % (AUTO) 8.8 % (2.0-9.0); NEUTROPHILS # (AUTO) 7.5 K/uL (1.8-7.7); NEUTROPHILS % (AUTO) 69.3 % (40.0-70.0); PLATELET COUNT (AUTO) 252 K/uL (150-450); RED CELL DISTRIBUTION WIDTH 14.5 % (11.5-14.5)
[2017-12-28 15:19] LABS: ALANINE AMINOTRANSFERASE 20 U/L (12-78); ALBUMIN 2.8 g/dL (3.4-5.0); ALKALINE PHOSPHATASE 60 U/L (46-116); ASPARTATE AMINOTRANSFERASE 17 U/L (15-37); BILIRUBIN,TOTAL 0.4 mg/dL (0.1-1.0); TOTAL PROTEIN, SERUM 6.5 g/dL (6.4-8.2)
[2017-12-28 16:08] VITALS: BP 93/56
[2017-12-28 19:48] VITALS: BP 95/50
[2017-12-28] MEDS: QUEtiapine FUMARATE 300 MG TABLET PO SCH (21:41)
[2017-12-29] VITALS (7 sets, daily range): BP systolic 93–121; BP diastolic 52–71
[2017-12-29] MEDS: HEPARIN SODIUM,PORCINE 5,000 UNITS/ML VIAL SQ SCH ×4 (00:11→23:44)
[2017-12-29] MEDS: ALBUTEROL SULFATE 2.5 MG/0.5 ML NEB SOLUTION NEB SCH ×4 (02:00→20:00)
[2017-12-29] MEDS: IPRATROPIUM BROMIDE 0.5 MG/2.5 ML NEB SOLUTION NEB SCH ×4 (02:00→20:00)
[2017-12-29] MEDS: TraMADol HCL 50 MG TABLET PO PRN ×2 (04:52→15:59)
[2017-12-29] MEDS: LEVOTHYROXINE SODIUM 25 MCG TABLET PO SCH (05:58)
[2017-12-29 06:45] LABS: BASOPHILS % (AUTO) 0.5 % (0.0-2.0); EOSINOPHILS % (AUTO) 1.5 % (1.0-6.0); HEMATOCRIT 34.9 % (36-46); HEMOGLOBIN 12.1 g/dL (12.0-16.0); LYMPHOCYTES % (AUTO) 23.2 % (22.0-44.0); MEAN CORPUSCULAR HEMOGLOBIN 31.6 pg (26.0-34.0); MEAN CORPUSCULAR HGB CONC 34.9 G/dL (31.0-37.0); MEAN CORPUSCULAR VOLUME 91 fL (80-100); MONOCYTES # (AUTO) 0.8 K/uL (0.1-1.0); MONOCYTES % (AUTO) 9.6 % (2.0-9.0); NEUTROPHILS # (AUTO) 5.7 K/uL (1.8-7.7); NEUTROPHILS % (AUTO) 65.2 % (40.0-70.0); PLATELET COUNT (AUTO) 253 K/uL (150-450); RED BLOOD CELL COUNT(AUTO) 3.85 MIL/uL (4.00-5.20); RED CELL DISTRIBUTION WIDTH 14.2 % (11.5-14.5)
[2017-12-29 07:35] LABS: ALANINE AMINOTRANSFERASE 17 U/L (12-78); ALBUMIN 2.8 g/dL (3.4-5.0); ALKALINE PHOSPHATASE 56 U/L (46-116); ANION GAP 8 mmol/L (8-16); ASPARTATE AMINOTRANSFERASE 16 U/L (15-37); BILIRUBIN,TOTAL 0.3 mg/dL (0.1-1.0); CALCIUM, TOTAL 8.4 mg/dL (8.8-10.5); CARBON DIOXIDE 28 mmol/L (22-29); CHLORIDE 102 mmol/L (98-107); CREATININE 0.55 mg/dL (0.60-1.30); GLOMERULAR FILTR. RATE CALC > 60 mL/min (>60); GLUCOSE,RANDOM 92 mg/dL (70-110); POTASSIUM 3.6 mmol/L (3.5-5.1); SODIUM SERUM 138 mmol/L (136-145); TOTAL PROTEIN, SERUM 6.6 g/dL (6.4-8.2); UREA NITROGEN, BLOOD 11 mg/dL (7-18)
[2017-12-29] MEDS: DIVALPROEX SODIUM 500 MG DR TABLET PO SCH ×2 (08:42→20:21)
[2017-12-29] MEDS: SIMVASTATIN 20 MG TABLET PO SCH (08:42)
[2017-12-29] MEDS: DOCUSATE SODIUM 100 MG CAPSULE PO SCH (08:42)
[2017-12-29] MEDS: PANTOPRAZOLE SODIUM 40 MG/VIAL IVP SCH (08:42)
[2017-12-29] MEDS: GABAPENTIN 400 MG CAPSULE PO SCH ×3 (08:42→20:21)
[2017-12-29] MEDS: CHOLECALCIFEROL (VIT D3) 1,000 UNITS TABLET PO SCH (08:42)
[2017-12-29] MEDS: POLYETHYLENE GLYCOL 3350 17 GM PACKET PO SCH (08:43)
[2017-12-29] MEDS: QUEtiapine FUMARATE 100 MG TABLET PO SCH (08:43)
[2017-12-29] MEDS: FLUoxetine HCL 20 MG CAPSULE PO SCH (08:43)
[2017-12-29] MEDS ORDERED: VANCOMYCIN HCL 1 GM/D5% WATER 200 ML IV ONE (09:00)
[2017-12-29] MEDS: SULFAMETHOX/TRIMETH DS 800-160 MG/TABLET PO SCH ×2 (09:44→20:21)
[2017-12-29] MEDS ORDERED: LORazepam 0.5 MG TABLET PO SCH (10:00)
[2017-12-29] MEDS: LORazepam 1 MG TABLET PO SCH ×2 (11:34→23:41)
[2017-12-29] MEDS: QUEtiapine FUMARATE 300 MG TABLET PO SCH (23:41)
[2017-12-30] MEDS: IPRATROPIUM BROMIDE 0.5 MG/2.5 ML NEB SOLUTION NEB SCH ×4 (02:00→20:03)
[2017-12-30] MEDS: ALBUTEROL SULFATE 2.5 MG/0.5 ML NEB SOLUTION NEB SCH ×4 (02:00→20:03)
[2017-12-30 04:30] VITALS: BP 114/74
[2017-12-30] MEDS: LORazepam 1 MG TABLET PO SCH ×3 (04:45→20:05)
[2017-12-30] MEDS: LEVOTHYROXINE SODIUM 25 MCG TABLET PO SCH (05:52)
[2017-12-30 06:53] LABS: BASOPHILS % (AUTO) 0.7 % (0.0-2.0); EOSINOPHILS % (AUTO) 1.9 % (1.0-6.0); HEMATOCRIT 35.3 % (36-46); HEMOGLOBIN 12.1 g/dL (12.0-16.0); LYMPHOCYTES % (AUTO) 26.1 % (22.0-44.0); MEAN CORPUSCULAR HEMOGLOBIN 31.3 pg (26.0-34.0); MEAN CORPUSCULAR HGB CONC 34.4 G/dL (31.0-37.0); MEAN CORPUSCULAR VOLUME 91 fL (80-100); MONOCYTES # (AUTO) 0.9 K/uL (0.1-1.0); MONOCYTES % (AUTO) 11.4 % (2.0-9.0); NEUTROPHILS # (AUTO) 4.6 K/uL (1.8-7.7); NEUTROPHILS % (AUTO) 59.9 % (40.0-70.0); PLATELET COUNT (AUTO) 287 K/uL (150-450); RED BLOOD CELL COUNT(AUTO) 3.88 MIL/uL (4.00-5.20); RED CELL DISTRIBUTION WIDTH 14.2 % (11.5-14.5)
[2017-12-30 07:12] VITALS: BP 141/74
[2017-12-30 07:28] LABS: ALANINE AMINOTRANSFERASE 15 U/L (12-78); ALBUMIN 2.7 g/dL (3.4-5.0); ALKALINE PHOSPHATASE 58 U/L (46-116); ANION GAP 5 mmol/L (8-16); ASPARTATE AMINOTRANSFERASE 9 U/L (15-37); BILIRUBIN,TOTAL 0.2 mg/dL (0.1-1.0); CALCIUM, TOTAL 8.8 mg/dL (8.8-10.5); CARBON DIOXIDE 30 mmol/L (22-29); CHLORIDE 103 mmol/L (98-107); CREATININE 0.81 mg/dL (0.60-1.30); GLOMERULAR FILTR. RATE CALC > 60 mL/min (>60); GLUCOSE,RANDOM 85 mg/dL (70-110); POTASSIUM 4.5 mmol/L (3.5-5.1); SODIUM SERUM 138 mmol/L (136-145); TOTAL PROTEIN, SERUM 6.9 g/dL (6.4-8.2); UREA NITROGEN, BLOOD 16 mg/dL (7-18)
[2017-12-30] MEDS: SIMVASTATIN 20 MG TABLET PO SCH (08:45)
[2017-12-30] MEDS: HEPARIN SODIUM,PORCINE 5,000 UNITS/ML VIAL SQ SCH ×3 (08:45→23:53)
[2017-12-30] MEDS: DOCUSATE SODIUM 100 MG CAPSULE PO SCH (08:45)
[2017-12-30] MEDS: GABAPENTIN 400 MG CAPSULE PO SCH ×3 (08:45→20:03)
[2017-12-30] MEDS: DIVALPROEX SODIUM 500 MG DR TABLET PO SCH ×2 (08:45→20:03)
[2017-12-30] MEDS: SULFAMETHOX/TRIMETH DS 800-160 MG/TABLET PO SCH ×2 (08:45→20:04)
[2017-12-30] MEDS: FLUoxetine HCL 20 MG CAPSULE PO SCH (08:45)
[2017-12-30] MEDS: PANTOPRAZOLE SODIUM 40 MG/VIAL IVP SCH (08:45)
[2017-12-30] MEDS: CHOLECALCIFEROL (VIT D3) 1,000 UNITS TABLET PO SCH (08:46)
[2017-12-30] MEDS: QUEtiapine FUMARATE 100 MG TABLET PO SCH (08:46)
[2017-12-30] MEDS: POLYETHYLENE GLYCOL 3350 17 GM PACKET PO SCH (08:46)
[2017-12-30 11:36] VITALS: BP 128/77
[2017-12-30] MEDS: CeFAZolin SODIUM 1 GM in DEXTROSE 5%-WATER 10 ML IV SCH ×2 (12:39→20:05)
[2017-12-30] MEDS: MUPIROCIN CALCIUM 2% 22 GM OINTMENT NASAL SCH (12:39)
[2017-12-30 15:10] VITALS: BP 133/75
[2017-12-30] MEDS: TraMADol HCL 50 MG TABLET PO PRN ×2 (16:14→22:14)
[2017-12-30 19:56] VITALS: BP 110/55
[2017-12-30] MEDS: QUEtiapine FUMARATE 300 MG TABLET PO SCH (20:10)
[2017-12-31 00:20] VITALS: BP 101/61
[2017-12-31] MEDS: IPRATROPIUM BROMIDE 0.5 MG/2.5 ML NEB SOLUTION NEB SCH ×4 (02:31→21:45)
[2017-12-31] MEDS: ALBUTEROL SULFATE 2.5 MG/0.5 ML NEB SOLUTION NEB SCH ×4 (02:31→21:45)
[2017-12-31 04:48] VITALS: BP 102/62
[2017-12-31] MEDS: LORazepam 1 MG TABLET PO SCH (05:05)
[2017-12-31] MEDS: CeFAZolin SODIUM 1 GM in DEXTROSE 5%-WATER 10 ML IV SCH ×3 (05:06→21:06)
[2017-12-31] MEDS: TraMADol HCL 50 MG TABLET PO PRN (05:06)
[2017-12-31] MEDS: LEVOTHYROXINE SODIUM 25 MCG TABLET PO SCH (05:22)
[2017-12-31 06:24] LABS: ALBUMIN 2.9 g/dL (3.4-5.0); BILIRUBIN,TOTAL 0.2 mg/dL (0.1-1.0); CALCIUM, TOTAL 9.3 mg/dL (8.8-10.5); CREATININE 0.97 mg/dL (0.60-1.30); TOTAL PROTEIN, SERUM 7.2 g/dL (6.4-8.2)
[2017-12-31 06:52] LABS: BASOPHILS % (AUTO) 0.4 % (0.0-2.0); EOSINOPHILS % (AUTO) 2.1 % (1.0-6.0); HEMATOCRIT 35.1 % (36-46); HEMOGLOBIN 12.1 g/dL (12.0-16.0); LYMPHOCYTES # (AUTO) 2.3 K/uL (1.0-4.8); LYMPHOCYTES % (AUTO) 24.1 % (22.0-44.0); MEAN CORPUSCULAR HEMOGLOBIN 31.3 pg (26.0-34.0); MEAN CORPUSCULAR HGB CONC 34.6 G/dL (31.0-37.0); MEAN CORPUSCULAR VOLUME 90 fL (80-100); MONOCYTES # (AUTO) 1.1 K/uL (0.1-1.0); MONOCYTES % (AUTO) 12.2 % (2.0-9.0); NEUTROPHILS # (AUTO) 5.8 K/uL (1.8-7.7); NEUTROPHILS % (AUTO) 61.2 % (40.0-70.0); PLATELET COUNT (AUTO) 320 K/uL (150-450); RED BLOOD CELL COUNT(AUTO) 3.88 MIL/uL (4.00-5.20); RED CELL DISTRIBUTION WIDTH 14.2 % (11.5-14.5)
[2017-12-31 07:58] VITALS: BP 117/77
[2017-12-31] MEDS: HEPARIN SODIUM,PORCINE 5,000 UNITS/ML VIAL SQ SCH ×2 (08:10→16:22)
[2017-12-31] MEDS: PANTOPRAZOLE SODIUM 40 MG/VIAL IVP SCH (08:10)
[2017-12-31] MEDS: CHOLECALCIFEROL (VIT D3) 1,000 UNITS TABLET PO SCH (08:11)
[2017-12-31] MEDS: SIMVASTATIN 20 MG TABLET PO SCH (08:11)
[2017-12-31] MEDS: DIVALPROEX SODIUM 500 MG DR TABLET PO SCH ×2 (08:11→20:46)
[2017-12-31] MEDS: GABAPENTIN 400 MG CAPSULE PO SCH ×3 (08:11→20:46)
[2017-12-31] MEDS: POLYETHYLENE GLYCOL 3350 17 GM PACKET PO SCH (08:11)
[2017-12-31] MEDS: FLUoxetine HCL 20 MG CAPSULE PO SCH (08:11)
[2017-12-31] MEDS: QUEtiapine FUMARATE 100 MG TABLET PO SCH (08:11)
[2017-12-31] MEDS: MUPIROCIN CALCIUM 2% 22 GM OINTMENT NASAL SCH (08:12)
[2017-12-31] MEDS: DOCUSATE SODIUM 100 MG CAPSULE PO SCH (08:12)
[2017-12-31] MEDS: SULFAMETHOX/TRIMETH DS 800-160 MG/TABLET PO SCH ×2 (08:12→20:45)
[2017-12-31] MEDS: MORPHINE SULFATE 4 MG/ML SYRINGE IVP PRN ×3 (11:10→20:47)
[2017-12-31] MEDS ORDERED: LORazepam 0.5 MG TABLET PO PRN (12:00)
[2017-12-31 12:01] VITALS: BP 102/57
[2017-12-31 16:12] VITALS: BP 133/71
[2017-12-31] MEDS ORDERED: RINGERS SOLUTION,LACTATED 1,000 ML IV ONE (18:01)
[2017-12-31] MEDS ORDERED: BACITRACIN 50,000 UNITS/VIAL ONE (18:02)
[2017-12-31] MEDS ORDERED: SODIUM CHLORIDE 0.9% 0 ML IV ONE (18:02)
[2017-12-31] MEDS ORDERED: SODIUM CHLORIDE 0.9% 0 ML ONE (18:02)
[2017-12-31] MEDS ORDERED: FentaNYL CITRATE-PF 100 MCG/2 ML VIAL IVP PRN (20:00)
[2017-12-31] MEDS ORDERED: HYDROmorphone 2 MG/ML SYRINGE IVP PRN (20:00)
[2017-12-31 20:36] VITALS: BP 122/65
[2017-12-31] MEDS: QUEtiapine FUMARATE 300 MG TABLET PO SCH (20:45)
[2017-12-31] MEDS: OxyCODONE HCL/ACETAMINOPHEN 10-325 MG TABLET PO PRN (22:05)
[2018-01-01] VITALS (7 sets, daily range): BP systolic 91–114; BP diastolic 47–69
[2018-01-01] MEDS: ALBUTEROL SULFATE 2.5 MG/0.5 ML NEB SOLUTION NEB SCH ×4 (02:33→19:46)
[2018-01-01] MEDS: IPRATROPIUM BROMIDE 0.5 MG/2.5 ML NEB SOLUTION NEB SCH ×4 (02:33→19:46)
[2018-01-01] MEDS ORDERED: NEOSTIGMINE METHYLSULFATE 1 MG/ML 10 ML VIAL IVP ONE (05:37)
[2018-01-01] MEDS ORDERED: PROPOFOL 1% 20 ML VIAL IVP ONE (05:37)
[2018-01-01] MEDS ORDERED: ONDANSETRON HCL 4 MG/2 ML VIAL IVP ONE (05:37)
[2018-01-01] MEDS ORDERED: FentaNYL CITRATE-PF 100 MCG/2 ML VIAL IVP ONE (05:37)
[2018-01-01] MEDS ORDERED: MIDAZOLAM HCL 2 MG/2 ML VIAL IVP ONE (05:37)
[2018-01-01] MEDS ORDERED: ROCURONIUM BROMIDE 10 MG/ML 5 ML VIAL IVP ONE (05:37)
[2018-01-01] MEDS ORDERED: DEXAMETHASONE SOD PHOS 4 MG/ML VIAL IVP ONE (05:37)
[2018-01-01] MEDS ORDERED: GLYCOPYRROLATE 0.2 MG/ML VIAL IM ONE (05:37)
[2018-01-01] MEDS: MORPHINE SULFATE 4 MG/ML SYRINGE IVP PRN ×3 (06:02→20:45)
[2018-01-01] MEDS: CeFAZolin SODIUM 1 GM in DEXTROSE 5%-WATER 10 ML IV SCH ×3 (06:02→20:44)
[2018-01-01] MEDS: LEVOTHYROXINE SODIUM 25 MCG TABLET PO SCH (06:02)
[2018-01-01 06:18] LABS: BASOPHILS % (AUTO) 0.2 % (0.0-2.0); EOSINOPHILS % (AUTO) 0 % (1.0-6.0); HEMOGLOBIN 11.2 g/dL (12.0-16.0); LYMPHOCYTES # (AUTO) 1.1 K/uL (1.0-4.8); LYMPHOCYTES % (AUTO) 10.5 % (22.0-44.0); MEAN CORPUSCULAR HEMOGLOBIN 30.9 pg (26.0-34.0); MEAN CORPUSCULAR HGB CONC 33.9 G/dL (31.0-37.0); MEAN CORPUSCULAR VOLUME 91 fL (80-100); MONOCYTES # (AUTO) 0.4 K/uL (0.1-1.0); NEUTROPHILS # (AUTO) 8.6 K/uL (1.8-7.7); PLATELET COUNT (AUTO) 296 K/uL (150-450); RED BLOOD CELL COUNT(AUTO) 3.61 MIL/uL (4.00-5.20)
[2018-01-01 06:22] LABS: NEUTROPHILS % (AUTO) 85.3 % (40.0-70.0)
[2018-01-01 06:29] LABS: ALBUMIN 2.9 g/dL (3.4-5.0); BILIRUBIN,TOTAL 0.2 mg/dL (0.1-1.0); CALCIUM, TOTAL 8.5 mg/dL (8.8-10.5); CREATININE 0.95 mg/dL (0.60-1.30); POTASSIUM 5.2 mmol/L (3.5-5.1); TOTAL PROTEIN, SERUM 7.2 g/dL (6.4-8.2)
[2018-01-01] MEDS: CHOLECALCIFEROL (VIT D3) 1,000 UNITS TABLET PO SCH (07:48)
[2018-01-01] MEDS: QUEtiapine FUMARATE 100 MG TABLET PO SCH (07:48)
[2018-01-01] MEDS: DOCUSATE SODIUM 100 MG CAPSULE PO SCH (07:48)
[2018-01-01] MEDS: SIMVASTATIN 20 MG TABLET PO SCH (07:48)
[2018-01-01] MEDS: PANTOPRAZOLE SODIUM 40 MG/VIAL IVP SCH (07:48)
[2018-01-01] MEDS: HEPARIN SODIUM,PORCINE 5,000 UNITS/ML VIAL SQ SCH ×4 (07:48→23:51)
[2018-01-01] MEDS: MUPIROCIN CALCIUM 2% 22 GM OINTMENT NASAL SCH (07:49)
[2018-01-01] MEDS: FLUoxetine HCL 20 MG CAPSULE PO SCH (07:49)
[2018-01-01] MEDS: SULFAMETHOX/TRIMETH DS 800-160 MG/TABLET PO SCH ×2 (07:49→20:44)
[2018-01-01] MEDS: POLYETHYLENE GLYCOL 3350 17 GM PACKET PO SCH (07:50)
[2018-01-01] MEDS: DIVALPROEX SODIUM 500 MG DR TABLET PO SCH ×2 (07:50→20:44)
[2018-01-01] MEDS: GABAPENTIN 400 MG CAPSULE PO SCH ×3 (07:50→20:45)
[2018-01-01] MEDS: NICOTINE 21 MG/24 HOUR PATCH TD SCH (11:57)
[2018-01-01] MEDS: OxyCODONE HCL/ACETAMINOPHEN 10-325 MG TABLET PO PRN ×2 (11:57→17:59)
[2018-01-01] MEDS: QUEtiapine FUMARATE 300 MG TABLET PO SCH (21:57)
[2018-01-02] VITALS: BP 106/62
[2018-01-02 00:31] VITALS: BP 99/66
[2018-01-02] MEDS: OxyCODONE HCL/ACETAMINOPHEN 10-325 MG TABLET PO PRN ×3 (00:37→16:07)
[2018-01-02] MEDS: IPRATROPIUM BROMIDE 0.5 MG/2.5 ML NEB SOLUTION NEB SCH ×3 (02:17→15:05)
[2018-01-02] MEDS: ALBUTEROL SULFATE 2.5 MG/0.5 ML NEB SOLUTION NEB SCH ×3 (02:18→15:05)
[2018-01-02 04:00] VITALS: BP 102/74
[2018-01-02] MEDS: LEVOTHYROXINE SODIUM 25 MCG TABLET PO SCH (05:31)
[2018-01-02] MEDS: CeFAZolin SODIUM 1 GM in DEXTROSE 5%-WATER 10 ML IV SCH ×2 (05:32→13:33)
[2018-01-02 06:18] LABS: BASOPHILS % (AUTO) 0.2 % (0.0-2.0); EOSINOPHILS % (AUTO) 2.8 % (1.0-6.0); HEMATOCRIT 30.8 % (36-46); LYMPHOCYTES % (AUTO) 13.9 % (22.0-44.0); MEAN CORPUSCULAR HEMOGLOBIN 27.8 pg (26.0-34.0); MEAN CORPUSCULAR HGB CONC 35.7 G/dL (31.0-37.0); MEAN CORPUSCULAR VOLUME 78 fL (80-100); MONOCYTES # (AUTO) 0.5 K/uL (0.1-1.0); MONOCYTES % (AUTO) 7.2 % (2.0-9.0); NEUTROPHILS # (AUTO) 5.6 K/uL (1.8-7.7); NEUTROPHILS % (AUTO) 75.9 % (40.0-70.0); PLATELET COUNT (AUTO) 376 K/uL (150-450); RED BLOOD CELL COUNT(AUTO) 3.96 MIL/uL (4.00-5.20); RED CELL DISTRIBUTION WIDTH 13.9 % (11.5-14.5)
[2018-01-02] MEDS: MORPHINE SULFATE 4 MG/ML SYRINGE IVP PRN ×2 (06:35→13:11)
[2018-01-02 06:44] LABS: ALANINE AMINOTRANSFERASE 18 U/L (12-78); ALKALINE PHOSPHATASE 51 U/L (46-116); ANION GAP 7 mmol/L (8-16); ASPARTATE AMINOTRANSFERASE 18 U/L (15-37); BILIRUBIN,TOTAL 0.4 mg/dL (0.1-1.0); CALCIUM, TOTAL 8.8 mg/dL (8.8-10.5); CARBON DIOXIDE 29 mmol/L (22-29); CHLORIDE 103 mmol/L (98-107); CREATININE 0.79 mg/dL (0.60-1.30); GLOMERULAR FILTR. RATE CALC > 60 mL/min (>60); GLUCOSE,RANDOM 163 mg/dL (70-110); SODIUM SERUM 139 mmol/L (136-145); TOTAL PROTEIN, SERUM 6.6 g/dL (6.4-8.2); UREA NITROGEN, BLOOD 5 mg/dL (7-18)
[2018-01-02 07:39] VITALS: BP 129/67
[2018-01-02] MEDS: HEPARIN SODIUM,PORCINE 5,000 UNITS/ML VIAL SQ SCH ×2 (08:00→15:38)
[2018-01-02] MEDS: DIVALPROEX SODIUM 500 MG DR TABLET PO SCH (08:26)
[2018-01-02] MEDS: MUPIROCIN CALCIUM 2% 22 GM OINTMENT NASAL SCH (08:26)
[2018-01-02] MEDS: PANTOPRAZOLE SODIUM 40 MG/VIAL IVP SCH (08:26)
[2018-01-02] MEDS: GABAPENTIN 400 MG CAPSULE PO SCH ×2 (08:27→16:07)
[2018-01-02] MEDS: DOCUSATE SODIUM 100 MG CAPSULE PO SCH (08:27)
[2018-01-02] MEDS: QUEtiapine FUMARATE 100 MG TABLET PO SCH (08:28)
[2018-01-02] MEDS: SIMVASTATIN 20 MG TABLET PO SCH (08:28)
[2018-01-02] MEDS: SULFAMETHOX/TRIMETH DS 800-160 MG/TABLET PO SCH (08:28)
[2018-01-02] MEDS: NICOTINE 21 MG/24 HOUR PATCH TD SCH (08:28)
[2018-01-02] MEDS: FLUoxetine HCL 20 MG CAPSULE PO SCH (08:28)
[2018-01-02] MEDS: POLYETHYLENE GLYCOL 3350 17 GM PACKET PO SCH (08:29)
[2018-01-02] MEDS: CHOLECALCIFEROL (VIT D3) 1,000 UNITS TABLET PO SCH (08:29)
[2018-01-02 11:51] VITALS: BP 92/64
[2018-01-02] MEDS ORDERED: POTASSIUM CHLORIDE 20 MEQ ER TABLET PO ONE (12:30)
[2018-01-02 16:14] VITALS: BP 111/62
[2018-01-02] MEDS ORDERED: AUD NEB ×2 (18:35→18:48)
[2018-01-02] MEDS ORDERED: CEFA1VIA11 IVPB (18:37)
[2018-01-02] MEDS ORDERED: HEPA500041 SQ (18:39)
[2018-01-02] MEDS ORDERED: IPRNEB IH (18:39)
[2018-01-02] MEDS ORDERED: MUPI1OIN4 NS (18:40)
[2018-01-02] MEDS ORDERED: NICO-650 MISC (18:41)
[2018-01-02] MEDS ORDERED: MIRALAX PO (18:42)
[2018-01-02] MEDS ORDERED: PANT40TA25 PO (18:42)
[2018-01-02] MEDS ORDERED: ACET-2247 PO (18:46)
[2018-01-02] MEDS ORDERED: IPRNEB NEB (18:49)
[2018-01-02] MEDS ORDERED: MORP2SYR IVP (18:52)
== END 2018-01-02 17:20 | DRG 854 ==
LOC: EMS 12:04 → 5N 19:50
PROVIDERS: ADMIT Internal Medicine; ATTEND Internal Medicine
PROC: 0KB80ZZ Excision of Left Upper Arm Muscle, Open Approach (ICD-10-PCS; principal; 2017-12-31 19:00)
DX: A41.9 Sepsis, unspecified organism (principal); L03.114 Cellulitis of left upper limb; L02.414 Cutaneous abscess of left upper limb; F25.9 Schizoaffective disorder, unspecified; M41.9 Scoliosis, unspecified; G90.1 Familial dysautonomia [Riley-Day]; I95.1 Orthostatic hypotension; B19.20 Unspecified viral hepatitis C without hepatic coma; E03.9 Hypothyroidism, unspecified; E78.00 Pure hypercholesterolemia, unspecified; F41.9 Anxiety disorder, unspecified; G43.909 Migraine, unspecified, not intractable, without status migrainosus; J44.9 Chronic obstructive pulmonary disease, unspecified; K21.9 Gastro-esophageal reflux disease without esophagitis; M19.90 Unspecified osteoarthritis, unspecified site; F31.9 Bipolar disorder, unspecified; N18.9 Chronic kidney disease, unspecified; Z90.49 Acquired absence of other specified parts of digestive tract; Z79.899 Other long term (current) drug therapy; Z87.891 Personal history of nicotine dependence
CPT/HCPCS: 70450; 76881; 83605; 84443; 87040; 87070; 87081; 87205; 88304; 93005; 93306; 93880; 94640; 97116; 97162; 97165; 97530; 97535; 99285; C9113; J0690; J1100; J1644; J2250; J2270; J2405; J2704; J3010; J3370; J3490; J7030; J7060; J7120

== ENCOUNTER 2018-01-18 19:07 | Emergency (ER) | payer MEDICARE, MEDICAID ==
[~2018-01-18] VITALS: Ht 167.6 cm; Wt 65.0 kg
[~2018-01-18 19:07] MED LIST changes: +ACET-2247 PO; +AUD NEB; +CEFA1VIA11 IVPB; +HEPA500041 SQ; +IPRNEB IH; +IPRNEB NEB; +MUPI1OIN4 NS; +NICO-650 MISC; -OMEP20CA4 PO; +PANT40TA25 IVP
[2018-01-18 21:57] LABS: EOSINOPHILS % (AUTO) 1.1 % (1.0-6.0); HEMATOCRIT 32.6 % (36-46); LYMPHOCYTES # (AUTO) 1.4 K/uL (1.0-4.8); LYMPHOCYTES % (AUTO) 11.4 % (22.0-44.0); MEAN CORPUSCULAR HEMOGLOBIN 31.1 pg (26.0-34.0); MEAN CORPUSCULAR HGB CONC 33.6 G/dL (31.0-37.0); MEAN CORPUSCULAR VOLUME 92 fL (80-100); MONOCYTES # (AUTO) 0.7 K/uL (0.1-1.0); MONOCYTES % (AUTO) 5.5 % (2.0-9.0); NEUTROPHILS # (AUTO) 10.1 K/uL (1.8-7.7); PLATELET COUNT (AUTO) 267 K/uL (150-450); RED BLOOD CELL COUNT(AUTO) 3.53 MIL/uL (4.00-5.20); RED CELL DISTRIBUTION WIDTH 14.6 % (11.5-14.5)
[2018-01-18 22:14] LABS: ANION GAP 6 mmol/L (8-16); CALCIUM, TOTAL 8.1 mg/dL (8.8-10.5); CARBON DIOXIDE 26 mmol/L (22-29); CHLORIDE 105 mmol/L (98-107); CREATININE 0.67 mg/dL (0.60-1.30); GLOMERULAR FILTR. RATE CALC > 60 mL/min (>60); GLUCOSE,RANDOM 101 mg/dL (70-110); POTASSIUM 4.3 mmol/L (3.5-5.1); SODIUM SERUM 137 mmol/L (136-145); UREA NITROGEN, BLOOD 13 mg/dL (7-18)
[2018-01-18 22:21] LABS: ALANINE AMINOTRANSFERASE 281 U/L (12-78); ALBUMIN 2.9 g/dL (3.4-5.0); ALKALINE PHOSPHATASE 201 U/L (46-116); ASPARTATE AMINOTRANSFERASE 388 U/L (15-37); BILIRUBIN,TOTAL 0.4 mg/dL (0.1-1.0)
[2018-01-18] MEDS ORDERED: OXYC-43 PO (23:05)
[2018-01-18] MEDS ORDERED: LORA0.5T83 PO (23:05)
[2018-01-18] MEDS ORDERED: ADV500 IH (23:05)
[2018-01-18] MEDS ORDERED: [UNRECOGNIZED DRUG - CODE] PO (23:05)
[2018-01-19 03:04] VITALS: BP 106/59
[2018-01-19 03:09] LABS: APPEARANCE,URINE CLEAR (CLEAR); BILIRUBIN,URINE NEGATIVE (NEGATIVE); GLUCOSE, URINE (UA) NEGATIVE (NEGATIVE); KETONES,URINE NEGATIVE (NEGATIVE); LEUKOCYTE ESTERASE ,URINE NEGATIVE (NEGATIVE); NITRATE,URINE NEGATIVE (NEGATIVE); OCCULT BLOOD,URINE NEGATIVE (NEGATIVE); PH,URINE 7.5 (5.0-8.0); PROTEIN,URINE NEGATIVE (NEGATIVE); UROBILINOGEN,URINE 0.2 mg/dL (<=1.0)
[2018-01-19 03:19] LABS: RBC,URINE 0-2 /HPF (0-2)
[2018-01-19 03:20] LABS: BACTERIA,URINE None Seen /HPF (None Seen); SQUAMOUS EPITHELIAL CELL,UR Few /LPF (None Seen); WBC,URINE 0-2 /HPF (0-5)
== END 2018-01-19 03:48 | disposition short-term general hospital (02) ==
LOC: EMS 19:09
DX: D72.829 Elevated white blood cell count, unspecified (principal); K85.90 Acute pancreatitis without necrosis or infection, unspecified; R74.0 Nonspecific elevation of levels of transaminase and lactic acid dehydrogenase [LDH]; R74.8 Abnormal levels of other serum enzymes; J44.9 Chronic obstructive pulmonary disease, unspecified; K21.9 Gastro-esophageal reflux disease without esophagitis; F17.210 Nicotine dependence, cigarettes, uncomplicated
CPT/HCPCS: 76705; 99285

== ENCOUNTER 2018-01-24 20:56 | Emergency (ER) | payer MEDICARE, MEDICAID ==
[~2018-01-24] VITALS: Ht 165.1 cm; Wt 65.0 kg
[~2018-01-24 20:56] MED LIST changes: +ADV500 IH; -AUD NEB; -CEFA1VIA11 IVPB; -HEPA500041 SQ; -IPRNEB IH; -IPRNEB NEB; +LORA0.5T83 PO; -NICO-650 MISC; +OXYC-43 PO; -PANT40TA25 IVP; +PANT40TA25 PO; +[UNRECOGNIZED DRUG - CODE] PO
[2018-01-24] MEDS ORDERED: MORP15 PO (22:18)
[2018-01-24 22:27] LABS: BASOPHILS % (AUTO) 1.5 % (0.0-2.0); EOSINOPHILS % (AUTO) 7.5 % (1.0-6.0); HEMATOCRIT 35.7 % (36-46); HEMOGLOBIN 12.2 g/dL (12.0-16.0); LYMPHOCYTES # (AUTO) 1.6 K/uL (1.0-4.8); LYMPHOCYTES % (AUTO) 28.9 % (22.0-44.0); MEAN CORPUSCULAR HEMOGLOBIN 31.2 pg (26.0-34.0); MEAN CORPUSCULAR HGB CONC 34.2 G/dL (31.0-37.0); MEAN CORPUSCULAR VOLUME 91 fL (80-100); MONOCYTES # (AUTO) 0.5 K/uL (0.1-1.0); MONOCYTES % (AUTO) 9.5 % (2.0-9.0); NEUTROPHILS % (AUTO) 52.6 % (40.0-70.0); PLATELET COUNT (AUTO) 355 K/uL (150-450); RED BLOOD CELL COUNT(AUTO) 3.91 MIL/uL (4.00-5.20)
[2018-01-24 22:42] LABS: ANION GAP 3 mmol/L (8-16); CALCIUM, TOTAL 8.5 mg/dL (8.8-10.5); CARBON DIOXIDE 28 mmol/L (22-29); CHLORIDE 102 mmol/L (98-107); CREATININE 0.69 mg/dL (0.60-1.30); GLOMERULAR FILTR. RATE CALC > 60 mL/min (>60); GLUCOSE,RANDOM 87 mg/dL (70-110); SODIUM SERUM 133 mmol/L (136-145); UREA NITROGEN, BLOOD 10 mg/dL (7-18)
[2018-01-24] MEDS ORDERED: DiphenhydrAMINE HCL 25 MG CAPSULE PO ONE (22:45)
[2018-01-24] MEDS ORDERED: LORazepam 2 MG TABLET PO ONE (22:45)
[2018-01-24] MEDS ORDERED: HALOPERIDOL 5 MG TABLET PO ONE (22:45)
[2018-01-24 22:47] LABS: ALANINE AMINOTRANSFERASE 53 U/L (12-78); ALBUMIN 3.4 g/dL (3.4-5.0); ALKALINE PHOSPHATASE 149 U/L (46-116); ASPARTATE AMINOTRANSFERASE 30 U/L (15-37); BILIRUBIN,TOTAL 0.1 mg/dL (0.1-1.0); TOTAL PROTEIN, SERUM 7.7 g/dL (6.4-8.2)
[2018-01-25] MEDS ORDERED: OxyCODONE HCL/ACETAMINOPHEN 5-325 MG TABLET PO ONE (01:15)
[2018-01-25 01:51] LABS: AMPHET/METH SCREEN,URINE NEGATIVE (NEGATIVE); BARBITURATE SCREEN, URINE NEGATIVE (NEGATIVE); BENZODIAZEPINES SCREEN,URINE NEGATIVE (NEGATIVE); CANNABINOID SCREEN,URINE NEGATIVE (NEGATIVE); COCAINE SCREEN,URINE NEGATIVE (NEGATIVE); METHADONE SCREEN, URINE NEGATIVE (NEGATIVE); OPIATE SCREEN,URINE POSITIVE (NEGATIVE); PHENCYCLIDINE SCREEN,URINE NEGATIVE (NEGATIVE)
[2018-01-25 02:45] VITALS: BP 90/54
== END 2018-01-25 04:41 | disposition home or self-care (01) ==
LOC: EMS 21:00
DX: F32.9 Major depressive disorder, single episode, unspecified (principal); F41.9 Anxiety disorder, unspecified; F31.9 Bipolar disorder, unspecified; F20.9 Schizophrenia, unspecified; J44.9 Chronic obstructive pulmonary disease, unspecified; K21.9 Gastro-esophageal reflux disease without esophagitis; E78.00 Pure hypercholesterolemia, unspecified; E03.9 Hypothyroidism, unspecified; G43.909 Migraine, unspecified, not intractable, without status migrainosus; F17.210 Nicotine dependence, cigarettes, uncomplicated; Z59.0 Homelessness
CPT/HCPCS: 36415; 80053; 80307; 85025; 99285; G0480

== ENCOUNTER 2018-01-27 11:01 | Emergency (ER) | payer MEDICARE, MEDICAID ==
[~2018-01-27] VITALS: Ht 167.6 cm; Wt 65.0 kg
[~2018-01-27 11:01] MED LIST changes: +MORP15 PO; -QUET100T33 PO; -QUET300T18 PO; -[UNRECOGNIZED DRUG - CODE] PO
[2018-01-27 11:38] VITALS: BP 112/73
[2018-01-27 12:09] LABS: ANION GAP 3 mmol/L (8-16); CALCIUM, TOTAL 8.6 mg/dL (8.8-10.5); CARBON DIOXIDE 30 mmol/L (22-29); CHLORIDE 101 mmol/L (98-107); CREATININE 0.81 mg/dL (0.60-1.30); GLOMERULAR FILTR. RATE CALC > 60 mL/min (>60); GLUCOSE,RANDOM 95 mg/dL (70-110); POTASSIUM 4.2 mmol/L (3.5-5.1); SODIUM SERUM 134 mmol/L (136-145); UREA NITROGEN, BLOOD 16 mg/dL (7-18)
[2018-01-27 12:15] LABS: ALANINE AMINOTRANSFERASE 39 U/L (12-78); ALBUMIN 3.7 g/dL (3.4-5.0); ALKALINE PHOSPHATASE 147 U/L (46-116); ASPARTATE AMINOTRANSFERASE 17 U/L (15-37); BILIRUBIN,TOTAL 0.2 mg/dL (0.1-1.0); LIPASE 147 U/L (73-393); TOTAL PROTEIN, SERUM 8.2 g/dL (6.4-8.2)
== END 2018-01-27 12:02 | disposition left against medical advice (07) ==
LOC: EMS 11:05
DX: T40.1X2A Poisoning by heroin, intentional self-harm, initial encounter (principal); R10.11 Right upper quadrant pain; F41.9 Anxiety disorder, unspecified; F31.9 Bipolar disorder, unspecified; J44.9 Chronic obstructive pulmonary disease, unspecified; F20.9 Schizophrenia, unspecified; K21.9 Gastro-esophageal reflux disease without esophagitis; E78.00 Pure hypercholesterolemia, unspecified; I10 Essential (primary) hypertension; E03.9 Hypothyroidism, unspecified; G43.909 Migraine, unspecified, not intractable, without status migrainosus; G89.29 Other chronic pain; F17.210 Nicotine dependence, cigarettes, uncomplicated; F19.90 Other psychoactive substance use, unspecified, uncomplicated; Z59.0 Homelessness
CPT/HCPCS: 99284

== ENCOUNTER → 2018-06-08 | Outpatient (CLI) | payer MEDICARE, MEDICAID ==
[~2018-06-08] VITALS: Ht 167.6 cm; Wt 70.0 kg
[~2018-06-08] MED LIST changes: +ARIP10TA8 PO; +DIVA-78 PO; -DIVA500T35 PO; +RANI150T7 PO; +SUMA50TA17 PO; +TOPI50TA24 PO; +TRAZ-220 PO
[2018-06-08 12:01] VITALS: BP 101/58
== END | disposition home or self-care (01) ==
LOC: SRCNTR 11:36
PROVIDERS: ATTEND Hospitalist
DX: E03.9 Hypothyroidism, unspecified (principal); E78.5 Hyperlipidemia, unspecified; M54.5 Low back pain; J44.9 Chronic obstructive pulmonary disease, unspecified; M06.9 Rheumatoid arthritis, unspecified; K21.9 Gastro-esophageal reflux disease without esophagitis
CPT/HCPCS: G0463

== ENCOUNTER 2019-05-04 15:41 | Emergency (ER) | payer MEDICARE, MEDICAID ==
[~2019-05-04] VITALS: Ht 165.1 cm; Wt 85.9 kg
[~2019-05-04 15:41] MED LIST changes: -DIVA-78 PO; -LORA0.5T83 PO; -MORP15 PO; -MUPI1OIN4 NS; -OXYC-43 PO; -PANT40TA25 PO
[2019-05-04] MEDS ORDERED: ALBUTEROL SULFATE 2.5 MG/0.5 ML NEB SOLUTION NEB ONE ×2 (16:45→17:45)
[2019-05-04] MEDS ORDERED: MethylPREDNISolone SOD SUCC 125 MG/2 ML VIAL IVP ONE (16:45)
[2019-05-04] MEDS ORDERED: IPRATROPIUM BROMIDE 0.5 MG/2.5 ML NEB SOLUTION NEB ONE (16:45)
[2019-05-04 16:58] LABS: BASOPHILS % (AUTO) 0.7 % (0.0-2.0); EOSINOPHILS % (AUTO) 2.8 % (1.0-6.0); HEMATOCRIT 37.9 % (36-46); HEMOGLOBIN 12.4 g/dL (12.0-16.0); LYMPHOCYTES # (AUTO) 2.1 K/uL (1.0-4.8); LYMPHOCYTES % (AUTO) 36.2 % (22.0-44.0); MEAN CORPUSCULAR HEMOGLOBIN 29.7 pg (26.0-34.0); MEAN CORPUSCULAR HGB CONC 32.8 G/dL (31.0-37.0); MEAN CORPUSCULAR VOLUME 91 fL (80-100); MONOCYTES # (AUTO) 0.5 K/uL (0.1-1.0); NEUTROPHILS # (AUTO) 3.1 K/uL (1.8-7.7); NEUTROPHILS % (AUTO) 52.3 % (40.0-70.0); PLATELET COUNT (AUTO) 296 K/uL (150-450); RED BLOOD CELL COUNT(AUTO) 4.18 MIL/uL (4.00-5.20); RED CELL DISTRIBUTION WIDTH 13.9 % (11.5-14.5)
[2019-05-04 17:12] LABS: INR 0.9 (0.9-1.1); PROTHROMBIN TIME 9.5 SEC (9.4-11.6)
[2019-05-04] MEDS ORDERED: POLY17PO29 PO (17:19)
[2019-05-04] MEDS ORDERED: 0.9% SODIUM CHLORIDE 5 ML NEB SOLUTION NEB ONE ×2 (17:20→18:45)
[2019-05-04 17:27] LABS: B-TYPE NATRIURETIC PEPTIDE 26 pg/mL (0-100)
[2019-05-04 17:32] LABS: ANION GAP 9 mmol/L (8-16); CALCIUM, TOTAL 8.9 mg/dL (8.8-10.5); CARBON DIOXIDE 25 mmol/L (22-29); CHLORIDE 105 mmol/L (98-107); CREATININE 0.81 mg/dL (0.60-1.30); GLOMERULAR FILTR. RATE CALC > 60 mL/min (>60); GLUCOSE,RANDOM 85 mg/dL (70-110); POTASSIUM 3.8 mmol/L (3.5-5.1); SODIUM SERUM 139 mmol/L (136-145); UREA NITROGEN, BLOOD 9 mg/dL (7-18)
[2019-05-04 17:56] LABS: ALANINE AMINOTRANSFERASE 22 U/L (12-78); ALBUMIN 3.9 g/dL (3.4-5.0); ALKALINE PHOSPHATASE 99 U/L (46-116); ASPARTATE AMINOTRANSFERASE 24 U/L (15-37); BILIRUBIN,TOTAL 0.3 mg/dL (0.1-1.0); CREATINE KINASE, TOTAL ONLY 99 U/L (26-192); TOTAL PROTEIN, SERUM 7.7 g/dL (6.4-8.2)
[2019-05-04 18:09] VITALS: BP 118/78
[2019-05-04 18:11] LABS: APPEARANCE,URINE CLEAR (CLEAR); BILIRUBIN,URINE NEGATIVE (NEGATIVE); GLUCOSE, URINE (UA) NEGATIVE (NEGATIVE); KETONES,URINE NEGATIVE (NEGATIVE); LEUKOCYTE ESTERASE ,URINE NEGATIVE (NEGATIVE); NITRATE,URINE NEGATIVE (NEGATIVE); OCCULT BLOOD,URINE NEGATIVE (NEGATIVE); PROTEIN,URINE NEGATIVE (NEGATIVE); UROBILINOGEN,URINE 0.2 mg/dL (<=1.0)
== END 2019-05-04 19:30 | disposition home or self-care (01) ==
LOC: EMS 15:43
DX: J44.9 Chronic obstructive pulmonary disease, unspecified (principal); F31.9 Bipolar disorder, unspecified; F41.9 Anxiety disorder, unspecified; K21.9 Gastro-esophageal reflux disease without esophagitis; E78.00 Pure hypercholesterolemia, unspecified; I10 Essential (primary) hypertension; E03.9 Hypothyroidism, unspecified; F20.9 Schizophrenia, unspecified; F17.210 Nicotine dependence, cigarettes, uncomplicated; F11.90 Opioid use, unspecified, uncomplicated; F15.90 Other stimulant use, unspecified, uncomplicated; Z59.0 Homelessness; Z79.899 Other long term (current) drug therapy
CPT/HCPCS: 36415; 71045; 80053; 81003; 82550; 83880; 84484; 85025; 85610; 85730; 93005; 94640; 96374; 99285; 99406; J2930